=== PATIENT | female | born 1955 | race Caucasian/White ===

== ENCOUNTER → 2016-09-01 11:31 | Outpatient (CLI) | payer BC ==
[~2016-09-01] VITALS: Ht 170.2 cm; Wt 75.9 kg
--- NOTE | ~2016-09-01 | HEMODYNAMI ---
PATIENT:DAMIAN ALEJO MEDICAL RECORD: [id number] : 53 LOCATION:[facility] ADMISSION DATE: 09/01/16 Generatedon:09/01/201615:13 Patient name: DAMIAN ALEJO Patient #: [id number] SSN: : 1955 Date of study: 09/01/2016 Page: Of Hemodynamic Procedure Report Patient Data Patient Demographics Procedure consent was obtained First Name: DAMIAN Gender: Female Last Name: SAPNA : 1955 Patient #: [id number] Age: 60 year(s) Race: Unknown Additional ID: [id number] Contact details [address]: [address] [place] [address] State: [place] City: [place] Zip code: [address] Past Medical History Allergies Allergen Reaction Date Comments Reported Other allergy 09/01/2016 [facility] Admission Admission Data Admission Date: 09/01/2016 Admission Time: 11:31 Height (in.): 67 BSA: 1.87 (m2) Height (cm.): 170.18 BMI: 26.16 (kg/m2) Weight (lbs.): 167 Weight (kg.): 75.75 Lab Results Lab Result Date: 09/01/2016 Lab Result Time: 0:00 Biochemistry Name Units Result Min Max Creatinine mg/dl 0.9 --(-*--)-- 0.6 1.3 CBC Name Units Result Min Max Hemoglobin g/dl 12.8 -*(----)-- 13.5 17.5 Procedure Procedure Types Cath Procedure Diagnostic Procedure LHC LHC w/Coronaries Miscellaneous Procedures Moderate Sedation up to 15 minutes Procedure Description Procedure Date Procedure Date: 09/01/2016 Procedure Start Time: 14:55 Procedure End Time: 15:12 Procedure Staff Name Function Isra Brothers MD Performing Physician Kiel Cesar RT Scrub Mark Ac RN Nurse Ana Laura Thomason RT Monitor Procedure Data Cath Procedure Fluoroscopy Diagnostic fluoroscopy Total fluoroscopy Time: 2.2 time: 2.2 min min Diagnostic fluoroscopy Total fluoroscopy dose: dose: 229.3 mGy 229.3 mGy Contrast Material Contrast Material Type Amount (ml) Isovue 300 72 Entry Location Entry Primary Successful Side Size Upsize Upsize Entry Closure Kemp ccessful Closure Location (Fr) 1 (Fr) 2 (Fr) Remarks Device Remarks Radial Right 6 Fr Mechanical artery Short Compression Estimated blood loss: 5 ml Diagnostic catheters Device Type Used For End Catheter Placement Medtronic Dexterity 5Fr LV Angiography TRAP 4.0 catheter (NO CHARGE) Medtronic Dexterity 5Fr Left Coronary TRAP 4.0 catheter (NO Angiography CHARGE) Medtronic Dexterity 5Fr Right Coronary TRAP 4.0 catheter (NO Angiography CHARGE) Procedure Complications No complications Procedure Medications Medication Administration Route Dosage Oxygen NC 2 l/min Heparin Flush Bag added to field 2 bags (1000units/500ml NS) 0.9% NaCl I.V. 100 ml/hr Radial Cocktail added to field 1 syringe (Verapomil 2mg/Nitro 400mcg/Heparin 1500units) Fentanyl I.V. 50 mcg Versed I.V. 1 mg Fentanyl I.V. 50 mcg Versed I.V. 1 mg Radial Cocktail I.A. 1 syringe (Verapomil 2mg/Nitro 400mcg/Heparin 1500units) Hemodynamics Rest BSA: 1.87 (m2) HGB: 12.8 (g/dl) O2 Consumption: Estimated: 180.1 (ml/min) O2 Con sumption indexed: Estimated:96.31 (ml/min/m) Heart Rate: 75 (bpm) Pressure Samples Time Site Value (mmHg) Purpose Heart Use Rate(bpm) 14:58 LV 114/-3,-6 EDP 112 14:59 AO 105/52(74) Pullback 64 14:59 LV 111/6,18 Pullback 64 Gradients Valve Time Site 1 Site 2 Mean SEP/DFP Peak To Heart Use (mmHg) (sec/min) Peak Rate (mmHg) (bpm) Aortic 14:59 LV AO 19 8 6 64 111/6,18 105/52(74) Calculations Valve P-P Mean Valve Index Valve Source Name Gradient Area Flow (cm2) Aortic 6 19 6 19 Snapshots Pre Cath Intra NCS Post Cath Vital Signs Time Heart Resp SPO2 NIBP (mmHg) Rhythm Pain Sedation Rate (ipm) (%) Status Level (bpm) 14:35:33 75 17 96 142/78(116) NSR 0 (11) 10(A) , No pain 14:39:49 73 18 97 137/73(116) NSR 0 (11) 10(A) , No pain 14:44:08 77 18 95 123/76(98) NSR 0 (11) 10(A) , No pain 14:48:23 75 19 95 117/69(91) NSR 0 (11) 10(A) , No pain 14:52:37 73 18 95 121/70(94) NSR 0 (11) 10(A) , No pain 14:56:54 77 17 97 106/65(88) NSR 0 (11) 9(A) , No pain 15:01:07 77 16 96 109/63(82) NSR 0 (11) 9(A) , No pain 15:05:19 82 17 96 110/70(85) NSR 0 (11) 9(A) , No pain 15:09:33 80 16 94 115/67(90) NSR 0 (11) 9(A) , No pain Medications Time Medication Route Dose Verified Delivered Reason Notes Effectiveness by by 14:36:52 Oxygen NC 2 l/min Mark Flores Per Osorio Ac RN physician RN 14:37:01 Heparin Flush added 2 bags Mark Flores used for Bag to Osorio Ac rotoprinter (1000units/500ml field RN NS) 14:37:13 0.9% NaCl I.V. 100 Mark Flores Per ml/hr Osorio Ac RN physician RN 14:37:27 Radial Cocktail added 1 Mark Mark used for (Verapomil to syringe Osorio Ac rotoprinter 2mg/Nitro field RN 400mcg/Heparin 1500units) 14:53:32 Fentanyl I.V. 50 mcg Mark Mark for sedation Osorio Ac RN RN 14:53:38 Versed I.V. 1 mg Mark [place] for sedation Osorio Ac RN RN 14:55:04 Fentanyl I.V. 50 mcg Mark [place] for sedation Osorio Ac RN RN 14:55:07 Versed I.V. 1 mg [place] for sedation Osorio Ac RN RN 14:56:23 Radial Cocktail I.A. 1 Mark Isra for (Verapomil syringe Osorio Brothers MD vasodilation 2mg/Nitro RN 400mcg/Heparin 1500units) Procedure Log Time Note 14:13:39 Mark Ac RN sent for patient. Start room use. 14:23:17 Informed consent obtained and on chart 14:23:37 Diagnostic Cath status Elective 14:23:40 Time tracking: Regular hours 14:23:44 Plan of Care:Hemodynamics will remain stable., Cardiac rhythm will remain stable., Comfort level will be maintained., Respiratory function will remain adequate., Patient/ family verbilizes understanding of procedure., Procedure tolerated without complication., Recovers from procedure without complications.. 14:25:27 H&P Date Dictated: 08/17/2016 Within 30 days and on chart., H&P Addendum completed by physician on day of procedure. (MUST COMPLETE FOR ALL OUTPATIENTS). 14:25:43 Patient Height : 170.18 cm 14:25:48 Patient Weight : 75.75 kg 14:30:03 Patient received from Pre/Post Procedure Room to [facility] 3 Alert and oriented. Tansferred to table in Supine position. 14:30:04 Warm blankets applied, and juan manuel hugger turned on for patient comfort. 14:30:04 Correct patient and procedure confirmed by team. 14:30:05 ECG and BP/O2 sat monitors applied to patient. 14:34:28 Vital chart was started 14:36:52 Oxygen 2 l/min NC was administered by Mark Ac RN; Per physician; 14:37:01 Heparin Flush Bag (1000units/500ml NS) 2 bags added to field was administered by Mark Ac RN; used for procedure; 14:37:13 0.9% NaCl 100 ml/hr I.V. was administered by Mark Ac RN; Per physician; 14:37:27 Radial Cocktail (Verapomil 2mg/Nitro 400mcg/Heparin 1500units) 1 syringe added to field was administered by Mark Ac RN; used for procedure; 14:44:27 Baseline sample Acquired. 14:46:20 Full Disclosure recording started 14:46:25 Rhythm: sinus rhythm 14:46:27 Pre-procedure instructions explained to patient. 14:46:28 Pre-op teaching completed and patient verbalized understanding. 14:46:29 Family in waiting room. 14:46:31 Patient NPO since Midnight. 14:46:48 Patient allergic to Other allergyStadol 14:46:55 Is the patient allergic to Iodine/contrast media? No. 14:47:02 Is patient on blood thinner?Yes 14:47:08 ACC The patient was administered the following blood thiners within the last 24 hours: ACCPlavix 14:47:10 Patient diabetic? Yes. 14:47:12 If diabetic: On Metformin? No 14:47:14 Previous problem with sedation/anesthesia? No ? 14:47:16 Snore? Yes 14:47:18 Sleep apnea? Yes 14:47:20 Deviated septum? No 14:47:24 Opens mouth fully? Yes 14:47:24 Sticks out tongue? Yes 14:47:28 Airway obstruction? No ? 14:47:30 Dentures? No ? 14:47:34 Pre procedure: right dorsailis pedis pulse 2+ Normal; easily identifiable; not easily obliterated 14:47:36 Modified Ottoniel's test Ulnar < 7 seconds 14:47:38 Patient pain scale 0/10 ?. 14:47:45 IV patent on arrival in left hand with 0.9% NaCl at [facility]. 14:48:09 Lab Result : Creatinine 0.9 mg/dl 14:48:10 Lab Result : Hemoglobin 12.8 g/dl 14:48:13 Lab results completed and on chart. 14:48:16 Right Radial & Right Groin area was prepped with chlora-prep and draped in sterile fashion 14:48:17 Alarms reviewed by R. N. 14:48:17 Sharps counted by scrub and verified by R.N. 14:48:19 Use device set Radial Dx 14:48:20 Acist Syringe opened to sterile field. 14:48:20 Medline Cath Pack opened to sterile field. 14:48:21 Bag Decanter opened to sterile field. 14:48:21 Terumo 6Fr Slender Glidesheath opened to sterile field. 14:48:22 St Karl 260cm J .035 wire opened to sterile field. 14:48:22 Acist Hand Control opened to sterile field. 14:48:22 Acist Manifold opened to sterile field. 14:48:23 Tegaderm 4 x 4 opened to sterile field. 14:48:24 MBrace Wrist Support opened to sterile field. 14:48:34 Cook 21G 4cm Radial Needle opened to sterile field. 14:48:59 Final Timeout: patient, procedure, and site verified with staff and physician. All members of the team are in agreement. 14:49:03 Right Radial site verified by team. 14:49:05 Physical assessment completed. ASA score P 2 - A patient with mild systemic disease as per Isra Brothers MD. 14:49:07 Sedation plan: IV Moderate Sedation Versed, Fentanyl 14:53:32 Fentanyl 50 mcg I.V. was administered by Mark Ac RN; for sedation; 14:53:38 Versed 1 mg I.V. was administered by Mark Ac RN; for sedation; 14:55:04 Fentanyl 50 mcg I.V. was administered by Mark Ac RN; for sedation; 14:55:07 Versed 1 mg I.V. was administered by Mark Ac RN; for sedation; 14:55:22 Procedure started. 14:55:27 Local anesthetic to right radial artery with Lidocaine 2% by Isra Brothers MD.INITIAL ACCESS ONLY 14:55:49 Zero performed for pressure channel P1 14:56:18 A 6 Fr Short sheath was inserted into the Right Radial artery 14:56:23 Radial Cocktail (Verapomil 2mg/Nitro 400mcg/Heparin 1500units) 1 syringe I.A. was administered by Isra Brothers MD; for vasodilation; 14:57:46 A Medtronic Dexterity 5Fr TRAP 4.0 catheter (NO CHARGE) was advanced over the wire and used for LV Angiography. 14:58:59 LV gram done using MENEZES 14:59:00 LV hemodynamics recorded. 14:59:02 Injector settings: Ml/sec: 5, Volume: 15, 14:59:18 EF : 50 % 15:01:26 A Medtronic Dexterity 5Fr TRAP 4.0 catheter (NO CHARGE) was advanced over the wire and used for Left Coronary Angiography. 15:02:46 A Medtronic Dexterity 5Fr TRAP 4.0 catheter (NO CHARGE) was advanced over the wire and used for Right Coronary Angiography. 15:07:02 Catheter removed. 15:07:12 Sheath removed intact; hemostasis achieved with Mechanical Compression to the Right Radial artery. 15:07:14 Procedure ended.(Physican Out) 15:07:26 Fluoroscopy time 02.20 minutes. 15:07:32 Flurop Dose total: 229.3 15:07:32 Fluoroscopy dose: 229.3 mGy 15:07:43 Contrast amount:Isovue 300 72ml. 15:07:45 Sharps counted by scrub and verified by R.N. 15:07:47 TR band inflated with 12cc of air. 15:07:48 Insertion/operative site no bleeding no hematoma. 15:07:56 Post right radial artery:stable, clean and dry 15:07:57 Post Procedure Pulses reassessed and unchanged 15:08:05 Post-procedure physical assessment completed. ASA score P 2 - A patient with mild systemic disease as per Isra Brothers MD. 15:08:10 Post procedure rhythm: sinus rhythm 15:08:15 Estimated blood loss: 5 ml 15:08:16 Post procedure instruction explained to patient.Patient verbalizes understanding. 15:08:17 Patient needs reinforcement of post procedure teaching. 15:08:31 Procedure type changed to Cath procedure, Diagnostic procedure, LHC, LHC w/Coronaries, Miscellaneous Procedures, Moderate Sedation up to 15 minutes 15:08:36 Procedure Complication : No complications 15:08:38 See physician's report for complete and final results. 15:09:01 Terumo TR Band Standard opened to sterile field. 15:09:32 Procedure and supply charges have been captured, reviewed, submitted and are correct. 15:12:25 Vital chart was stopped 15:12:28 Report given to Pre/Post Procedure Room. 15:12:30 Patient transfered to Pre/Post Procedure Room with Stretcher. 15:12:37 Procedure ended. 15:12:37 Full Disclosure recording stopped 15:12:49 End room use (Document Last) Device Usage Item Name Manufacture Quantity Catalog Hospital Part Current Minimal Lot# / Number Charge Number Stock Stock Serial# Code Acist Acist 1 72780 629754 477181 [id number] 20 Syringe Medical Systems Inc Medline Cardinal 1 [id number] 066698 04228 488784 5 Cath Pack Health Bag Microtek 1 2001S 739734 23154 351380 5 DecVello Systems [employer] Inc. Terumo 6Fr Terumo 1 [id number] 795752 108744 538095 [address] St Karl 1 033611 554625 722053 925762 30 260cm J .035 wire Acist Hand Acist 1 63310 770204 010832 001018 5 Control Medical Systems Inc Acist Acist 1 29017 200358 174173 531020 5 Manifold Medical Systems Inc Tegaderm 4 3M 1 1626W 935817 850805 356875 5 x 4 MBrace Advanced 1 140-0250-00 700544 16840 591078 5 Wrist Vascular Support Dynamics Cook 21G Cook Medical 1 [id number] 464890 404956 589786 5 4cm Radial Needle Medtronic Medtronic 1 [id number] 262550 482287 5 Dexterity 5Fr TRAP 4.0 catheter (NO CHARGE) Terumo TR Terumo 1 [id number] 258290 083841 918828 40 Band Standard Signature Audit Alexander Stage Time Signature Unsigned Intra-Procedure 09/01/2016 Ana Laura 3:13:07 PM Counts RT(R) Signatures Monitor : Ana Laura Signature : Counts RT Date : Time : [place] [id number] [place] [address]
[~2016-09-01 11:31] MED LIST: ASPIRIN81 MG PO; BACLOFEN10 MG PO; CELEXA40 MG PO; DIOVAN HCT 160/1 TA1 PO; ELAVIL75 MG PO; FERROUS SULFAT325 MG PO; FISH OIL 1,0001 CA1 PO; FLEXERIL10 MG PO; FLINTSTONE1 TAB.CHEW PO; FOLATE0.4 MG PO; GLUCOPHAGE1000 MG PO; GLUCOTROL XL 1010 MG PO; ISOSORBIDE MONO60 M1 PO; JANUVIA100 MG PO; LACTULOSE SOL 10G; LANOXIN125 MCG PO; LEVEMIR INJ FLE; LISINOPRIL5 MG GT; LOPRESSOR25 MG PO; MAGNESIUM GLUC500 M1 PO; MELATONIN 3 MG1 TAB PO; MOBIC7.5 MG PO; NIASPAN500 MG PO; NORCO 10/325 TA1 TA1 PO; PLAVIX75 MG PO; PRAVACHOL20 MG PO; REMERON15 MG PO; REQUIP0.5 MG PO; RESTORIL15 MG PO; VITAMIN D31000 UNIT PO; WELCHOL625 MG; ZIAC 10/6.25 MG1 TAB PO
[2016-09-01 12:05] VITALS: BP 124/79; Ht 170.2 cm; Wt 75.9 kg
[2016-09-01 12:07] LABS: BASOPHILS 0.4 % (0-2); EOSINOPHILS 2.2 % (0-7); HEMOGLOBIN 12.8 g/dL (12-16); IMMATURE GRANULOCYTES 0.3 % (0-5); LYMPHOCYTES 23.1 % (15-50); MCH 27.7 pg (26.0-34.0); MCHC 33.7 g/dL (31.0-37.0); MCV 82.3 fL (80.0-100.0); MEAN PLATELET VOLUME 10.8 fL (7.4-10.4); MONOCYTES 6.5 % (2-11); NEUTROPHILS 67.5 % (40-80); RBC 4.62 10x6/uL (4.00-5.40); RDW 13.4 % (11.5-14.5); WBC 7.8 10x3/uL (4.8-10.8)
[2016-09-01 12:08] LABS: PLATELET COUNT 157 10x3/uL (130-400)
[2016-09-01 12:32] LABS: CALCIUM 9.3 mg/dL (8.5-10.1); CARBON DIOXIDE 25.4 mmol/L (21.0-32.0); CREATININE - SERUM 0.9 mg/dL (0.6-1.3); POTASSIUM - SERUM 4.4 mmol/L (3.5-5.1)
--- NOTE | 2016-09-01 15:31 | NUR ---
VSS WITH CHEST PAIN DENIED TR BAND TO R/WRIST CDI NO BLEEDING NO HEMATOMA NOTED. FAMILY AT SIDE WITH DR RUIZ PRESENT
--- NOTE | 2016-09-01 16:12 | NUR ---
PATIENT SLEEPING QUIELTY WITH VSS NO DISTRESS NOTED TR BAND R/WRIST CDI NO BLEEDING NO HEMATOMA NOTED
--- NOTE | 2016-09-01 16:52 | NUR ---
2 CC AIR REMOVED FROM TR BAND WITH NO BLEEDING NOTED REPOSITIONED TO SITTING WITH HOB UP 45 DEGREES SANDWICH AND SODA TO BEDSIDE
--- NOTE | 2016-09-01 17:53 | NUR ---
2 CC AIR REMOVED FROM TR BAND WITH NO BLEEDING NO HEMATOMA NOTED. PIV REMOVED WITH DRESSING APPLIED PATIENT UP TO GET DRESSED FOR DISCHARGE HOME
--- NOTE | 2016-09-01 18:24 | NUR ---
VERBAL AND WRITTEN DISCHARGE GONE OVER WITH PATIENT AND FAMILY. TR BAND REMOVED WITH NO BLEEDING NO HEMATOMA NOTED. LEFT VIA WC TO PARKING FOR TRANSPORT HOME
--- NOTE | 2016-09-02 10:59 | OP ---
PATIENT NAME: DAMIAN ALEJO MEDICAL RECORD: [id number] :53 LOCATION:D.CAT ADMISSION DATE: SURGEON: CLIVE RUIZ M.D. DATE OF OPERATION: 09/01/2016 Catheterization Report REFERRING PHYSICIAN: Dr. London Bautista at [place], [place]. PROCEDURES PERFORMED: 1. Selective coronary angiography. 2. Left heart catheterization with ventriculogram. INDICATION: A 60-year-old woman with history of coronary artery disease presents with accelerating angina. EQUIPMENT USED: A 5-Belgian [place] catheter. TECHNIQUE: A 6-Belgian sheath was inserted in retrograde fashion in the right radial artery. Next, selective coronary angiography was performed in standard 5-Belgian [place] catheter. Left heart catheterization was performed using [place] catheter as well. CORONARY ANATOMY: 1. Left main: Left main trunk is large in caliber. It gives rise to the LAD and circumflex. There is no obstruction. 2. LAD: This is a moderate caliber vessel extending to the apex. The proximal vessel has been stented. Distal to the stent, there appears to be a hazy 70% stenosis. In some views, it could be as much as 80%. There is a stent in the mid LAD as well. There is a long diffuse 70% in-stent restenosis seen as well. 3. Circumflex: This vessel is moderate in caliber. It has mild irregularities throughout its course. 4. Right coronary artery: This vessel is quite large and dominant. The proximal mid vessel has been stented. The vessel is quite angulated in the proximal mid segment. There appears to be a diffuse 70% stenosis throughout the stent. The distal vessel before the bifurcation has a 78% stenosis as well. As stated above, this vessel is extremely angulated in the proximal and mid segments. 5. Left ventricle: Left ventricle is normal in size and function. No wall motion abnormalities are noted. Estimated ejection fraction is 50%. IMPRESSION: 1. Significant 2-vessel coronary artery disease involving the LAD and right coronary artery. 2. Normal left ventricular function. RECOMMENDATIONS: I will review the situation with the patient. I am quite concerned about intervening on the right coronary artery. The vessel is quite angulated. It may not be possible to deliver stents to the distal segment. We may need to consider bypass grafting. I will review the situation with the patient. TRANSINT:[id number] Voice Confirmation ID: [id number] DOCUMENT ID: [id number] OPERATIVE REPORT [id number] DAMIAN ALEJO TIMOTHY E M.D. at 1059 CC: [id number] DICTATION DATE: 09/01/16 1518 DUTY ENGINEER: 09/01/16 2321 DEP CLI 09/01/16 [place] [id number] [place] [id number]
== END | disposition home or self-care (01) ==
LOC: D.CATH 11:31
PROVIDERS: Internal Medicine Cardiovascular Disease
DX: I25.110 Atherosclerotic heart disease of native coronary artery with unstable angina pectoris (principal); T82.855A Stenosis of coronary artery stent, initial encounter

== ENCOUNTER → 2016-09-23 15:05 | Outpatient (CLI) | payer BC ==
[2016-09-01 12:05] VITALS: BMI 26.2
[2016-09-23 15:51] LABS: BASOPHILS 0.3 % (0-2); EOSINOPHILS 2.4 % (0-7); HEMATOCRIT 37.5 % (36.0-48.0); HEMOGLOBIN 12.5 g/dL (12-16); IMMATURE GRANULOCYTES 0.3 % (0-5); LYMPHOCYTES 29.7 % (15-50); MCH 27.8 pg (26.0-34.0); MCHC 33.3 g/dL (31.0-37.0); MCV 83.5 fL (80.0-100.0); MEAN PLATELET VOLUME 10.2 fL (7.4-10.4); MONOCYTES 7.2 % (2-11); NEUTROPHILS 60.1 % (40-80); PLATELET COUNT 137 10x3/uL (130-400); RBC 4.49 10x6/uL (4.00-5.40); RDW 13.8 % (11.5-14.5); WBC 7.1 10x3/uL (4.8-10.8)
[2016-09-23 16:22] LABS: ALBUMIN 3.9 g/dL (3.4-5.0); ANION GAP 11.8 mmol/L (8-16); BILIRUBIN - TOTAL 0.53 mg/dL (0.2-1.3); CALCIUM 9.4 mg/dL (8.5-10.1); CARBON DIOXIDE 29.4 mmol/L (21.0-32.0); CREATININE - SERUM 1.2 mg/dL (0.6-1.3); POTASSIUM - SERUM 4.2 mmol/L (3.5-5.1); PROTEIN - SERUM 6.8 g/dL (6.4-8.2)
[2016-09-24 10:22] LABS: HEPATITIS C ANTIBODY <0.1 (0.0-0.9)
== END | disposition home or self-care (01) ==
LOC: D.LAB 15:05 → D.US 17:00
PROVIDERS: Internal Medicine Cardiovascular Disease
DX: G90.01 Carotid sinus syncope (principal); Z01.812 Encounter for preprocedural laboratory examination

== ENCOUNTER 2016-11-12 05:00 | Inpatient (IN) | payer BC ==
[2016-11-11 13:53] LABS: BASOPHILS 0.1 % (0-2); EOSINOPHILS 2.1 % (0-7); HEMATOCRIT 36.1 % (36.0-48.0); HEMOGLOBIN 12.2 g/dL (12-16); IMMATURE GRANULOCYTES 0.1 % (0-5); LYMPHOCYTES 20.2 % (15-50); MCH 28.8 pg (26.0-34.0); MCHC 33.8 g/dL (31.0-37.0); MCV 85.1 fL (80.0-100.0); MONOCYTES 6.1 % (2-11); NEUTROPHILS 71.4 % (40-80); RBC 4.24 10x6/uL (4.00-5.40); RDW 13.6 % (11.5-14.5); WBC 8.5 10x3/uL (4.8-10.8)
[2016-11-11 14:00] LABS: PLATELET COUNT 167 10x3/uL (130-400)
[2016-11-11 14:04] LABS: APTT 27.7 SECONDS (22.8-39.4); INR 1.08 (0.85-1.17); PROTIME 13.8 SECONDS (11.6-15.0)
[2016-11-11 14:07] LABS: APPEARANCE CLEAR (CLEAR); BILIRUBIN NEGATIVE (NEGATIVE); COLOR YELLOW (YELLOW); GLUCOSE NEGATIVE (NEGATIVE); KETONE NEGATIVE (NEGATIVE); NITRITE NEGATIVE (NEGATIVE); PROTEIN NEGATIVE (NEGATIVE); SPECIFIC GRAVITY 1.015 (1.005-1.020); UROBILINOGEN NORMAL (NORMAL)
[2016-11-11 14:11] LABS: BACTERIA FEW /hpf (NONE SEEN); EPITHELIAL CELLS 0-5 /hpf (0-5); HYALINE CAST RARE /lpf (NONE SEEN); LEUKOCYTE ESTERASE TRACE (NEGATIVE); RED CELLS - URINE NONE SEEN /hpf (0-5); WHITE CELLS - URINE 0-5 /hpf (0-5)
[2016-11-11 14:13] LABS: ALBUMIN 3.8 g/dL (3.4-5.0); ANION GAP 13.5 mmol/L (8-16); BILIRUBIN - TOTAL 0.47 mg/dL (0.2-1.3); CALCIUM 9.2 mg/dL (8.5-10.1); CARBON DIOXIDE 26.7 mmol/L (21.0-32.0); PHOSPHOROUS 4.1 mg/dL (2.5-4.9); POTASSIUM - SERUM 4.2 mmol/L (3.5-5.1); PROTEIN - SERUM 7.2 g/dL (6.4-8.2); T4 THYROXIN - FREE 1.33 ng/dL (0.76-1.46); THYROID STIMULATING HORMONE 1.32 uIU/mL (0.36-3.74); URIC ACID 5.1 mg/dL (2.6-7.2)
[2016-11-11 14:16] LABS: HEMOGLOBIN A1C 4.9 % (4.8-6.0)
[2016-11-11 15:51] LABS: COLD SCREEN @ 4 DEGREES 1+ (NEGATIVE); COLD SCREEN ROOM TEMP NEGATIVE (NEGATIVE)
--- NOTE | 2016-11-11 19:50 | NUR ---
EXTUBATED TO 3 LPM NC NO DIFF. PASSPORT APPLICATION EXAMINER MORPHINE INITIATED FOR PAIN CONTROL. SPO2 99%. RR 18. NO DISTRESS. CONT CURRENT POC.
[~2016-11-12] VITALS: Ht 170.2 cm; Wt 78.8 kg
[2016-11-12] VITALS (40 sets, daily range): BP systolic 11–140; BP diastolic 50–66; BMI 26.0; BMI 26.2
--- NOTE | ~2016-11-12 | TEE ---
PATIENT:DAMIAN ALEJO MEDICAL RECORD: [id number] LOCATION:[place] [address] AGE OF PATIENT: 60 ADMISSION DATE: 11/12/16 SEX: F REFERRING PHYSICIAN: INTERPRETING PHYSICIAN: JACQUELINE VEGA MD TRANSESOPHAGEAL ECHOCARDIOGRAM COLLIN CHARGE INDICATIONS: PREMEDICATIONS: PATIENT'S RESPONSE PROCEDURE DOPPLER MEASUREMENTS: LVIT LA PA RA LVOT RVOT Asc. Ao AV Gradient Peak AV Mean AV Area MV Gradient Peak MV Mean MV Area INTERPRETATION: Doppler: 2-D: COLOR FLOW DOPPLER NORMAL SALINE STUDY: MISCELLANOUS: DIAGNOSIS: PLAN: Epic Professional:2 Dr. Brothers Machine Presser: Gabriella ANDREW COMMENTS: TRANSESOPHAGEAL ECHOCARDIOGRAM INDICATION: Evaluation of valvular structures during bypass surgery. 1. Left ventricular chamber size is within normal limits. Left ventricular systolic function is normal. Overall ejection fraction is estimated at 55 percent. 2. Left atrium, right atrium, and right ventricular chamber sizes are within normal limits. TRANSESOPHAGEAL ECHOCARDIOGRAM REPORT [id number] DAMIAN ALEJO 3. Valvular structures have normal structure and motion. 4. Doppler interrogation only reveals trace mitral regurgitation; no other valvular insufficiency or stenosis. 5. No evidence of pericardial effusion or left ventricular thrombus. JACQUELINE VEGA MD CC: [id number] DICTATION DATE: 11/12/162128 BOX FINISHER: JDEVENDRA 11/12/162127 [place] [address] [place] [address]
[~2016-11-12 05:00] MED LIST changes: +ENULOSE10 G/15 ML PO; -LACTULOSE SOL 10G; -LEVEMIR INJ FLE; +LEVEMIR100 U/M1 SC; -LOPRESSOR25 MG PO; +MAG-OX 400 MG400 MG PO; +METOPROLOL TART50 MG PO; +MULTIPLE VITAMI1 TA1 PO; +NITROQUICK0.4 MG SL; +NOVOLOG100 U/M1 SC; +VITAMIN B COMPL1 TAB PO; +VITAMIN E400 UNI2 PO
[2016-11-12 07:52] LABS: PLT FUNCT.(P2Y12) PLAVIX 329 PRU (194-418)
[2016-11-12 13:39] LABS: MCH 28.4 pg (26.0-34.0); MCHC 33.8 g/dL (31.0-37.0); MCV 84.2 fL (80.0-100.0); MEAN PLATELET VOLUME 9.7 fL (7.4-10.4); RDW 13.5 % (11.5-14.5); WBC 6.8 10x3/uL (4.8-10.8)
[2016-11-12 13:43] LABS: CHLORIDE - SERUM 113 mmol/L (98-107); POTASSIUM - SERUM 4.1 mmol/L (3.5-5.1); SODIUM 147 mmol/L (136-145)
[2016-11-12 13:49] LABS: CALC OSMOLALITY 298 mosm/kg (275-300); CREATININE - SERUM 0.7 mg/dL (0.6-1.3); GLUCOSE 191 mg/dL (74-106); UREA NITROGEN 17 mg/dL (7-18); eGFR NON AFRICAN AMERICAN 90 mL/min (90-120)
[2016-11-12 13:53] LABS: APTT 36.6 SECONDS (22.8-39.4); HEMOGLOBIN 8.1 g/dL (12-16); INR 1.55 (0.85-1.17); PROTIME 18.6 SECONDS (11.6-15.0); RBC 2.85 10x6/uL (4.00-5.40)
--- NOTE | 2016-11-12 18:46 | NUR ---
1415-RECIEVED ACCOMPANIED BY OR TEAM-PLACED TO MONITORING SYSTEMS AND VENT PER PROTOCOL-PACED 100% AV-DDD--OGT CONFIRMED WITH AIR BOLUS FOR PLACEMENT-SOFT WRIST RESTRAINTS PLACED FOR PROTECTION OF AIRWAY-PORTABLE CXR CALLED-INSULIN GTT STARTED PER ORDERS- MEDIASTINAL CHEST TUBES PLACED TO 20CM SUCTION-NOTED SCANT SANG DRAINAGE AND NO AIRLEAK- 1500-PT ABLE TO OPEN EYES TO QUESTIONS-FRIEND BROUGHT TO BEDSIDE-AND STATUS REPORT GIVEN BY DR VELÁZQUEZ-TELEPHONE NUMBER OBTAINED FOR EMERGENCY CONTACT 1530-AMMONIA LEVEL DRAWN 1750-PT AWAKE AND ALERT-REPOSITIONED TO L SIDE 1810-AMMONIA LEVEL CALLED TO DR VELÁZQUEZ-ORDER RECIEV'D AND NOTED 1830-PT ABLE TO OPEN EYES AND NOD APPROPRIATELY TO QUESTION-WEANING CONTINUED BY RT
--- NOTE | 2016-11-12 19:15 | NUR ---
REPORT RECVD. CARE ASSUMED. INITIAL ASSMNT COMPLETED. SEE FLOWSHEET FOR ALL FINDINGS. CALM/COOPERATIVE ON MECH VENT. NO SEDATION. CPAP TRIAL IN PLACE. SPO2 96%. RESP EVEN AND UNLABORED. LUNG SOUNDS DIM IN BASES. AV PACED ON THE MONITOR. TEMP PM INTACT AT DDD 100. PULSES PALP. RIGHT RADIAL A-LINE ZEROED AND BALANCED WITH GOOD WAVE FORM SEEN. SYS B/P WITHIN PARAMETERS. RIGHT IJ SWAN LOCKED, PATENT, AND SECURED. CARDIAC MONITORING PER VIGILENCE WITHIN PARAMETERS. STERNAL DRESSINGS CDI. CHEST TUBES X3 PATENT AND SECURED TO 20 SM SX. NO AIR LEAK NOTED. MINIMAL BLOODY DRNG SEEN. ABD SOFT, BS HYPO X4. F/C PATENT WITH PHI UOP. TEDS.SCDS IN USE. 1:[address] CONT CURRENT POC.
--- NOTE | 2016-11-12 19:41 | NUR ---
ABGS DRAWN AND RESULTED. K+ LEVEL TREATED. ALL OTHER LEVEL WITHIN PARAMETERS.
--- NOTE | 2016-11-12 21:10 | NUR ---
NO VISITORS. TURNED AND REPOSITIONED. VSS. PROCESS SAFETY MANAGER MORPHINE PROVIDING PAIN CONTROL. HOB UP. 1:[address] CONT CURRENT POC.
--- NOTE | 2016-11-12 23:05 | NUR ---
ABGS DRAWN AND RESULTED. ALL WITHIN PARAMETERS. DECREASED FIO2 TO 2 LPM NC.
--- NOTE | 2016-11-12 23:15 | NUR ---
REASSESSMENT COMPLETED. SEE FLOWSHEET FOR ALL FINDINGS. RESTING WITH NO DISTRESS. RESP EVEN AND UNLABORED. SHALLOW. SPO2 96%. LUNG SOUNDS DIM IN BASES. V PACED/ ATRIAL SENSING. TEMP PM INTACT AT DDD 100. PULSES PALP. RIGHT RADIAL A-LINE INTACT WITH GOOD WAVE FORM SEEN. SYS B/P WITHIN PARAMETERS. RIGHT IJ SWAN LOCKED, PATENT, AND SECURED. CARDIAC MONITORING PER VIGILENCE WITHIN PARAMETERS. STERNAL DRESSINGS CDI. CHEST TUBES X3 PATENT AND SECURED TO 20 SM SX. NO AIR LEAK NOTED. MINIMAL BLOODY DRNG SEEN. ABD SOFT, BS HYPO X4. F/C PATENT WITH PHI UOP TO CRITICORE. APAP GIVEN PO FOR ELEVATED TEMP. ASSEMBLER EQUIPMENT MORPHINE PROVIDING EFFECTIVE PAIN CONTROL. TEDS/SCDS IN USE. 1:[address] CONT CURRENT POC.
[2016-11-13] VITALS (91 sets, daily range): BP systolic 92–134; BP diastolic 22–61
--- NOTE | 2016-11-13 01:20 | NUR ---
TURNED AND REPOSITIONED. RESTING WITH NO DISTRESS. COOLING EFFORTS FOR ELEVATED TEMP. SOAP DRIER TENDER MORPHINE IN USE FOR PAIN CONTROL. HOB UP. REMAINS IN 1:1 NURSING CARE.
--- NOTE | 2016-11-13 03:09 | NUR ---
ABGS DRAWN AND RESULTED. K+ LEVEL TREATED PER SLIDING SCALE. TEMP TREATED WITH APAP. COOLING EFFORTS IN PLACE.
--- NOTE | 2016-11-13 03:15 | NUR ---
REASSESSMENT COMPLETED. SEE FLOWSHEET FOR ALL FINDINGS. RESTING WITH NO DISTRESS. RESP EVEN AND UNLABORED. SHALLOW. SPO2 96%. LUNG SOUNDS DIM IN BASES. V PACED/ ATRIAL SENSING. TEMP PM INTACT AT DDD 100. PULSES PALP. RIGHT RADIAL A-LINE INTACT WITH GOOD WAVE FORM SEEN. SYS B/P WITHIN PARAMETERS. RIGHT IJ SWAN LOCKED, PATENT, AND SECURED. CARDIAC MONITORING PER VIGILENCE WITHIN PARAMETERS. STERNAL DRESSINGS CDI. CHEST TUBES X3 PATENT AND SECURED TO 20 S SX. NO AIR LEAK NOTED. MINIMAL BLOODY DRNG SEEN. ABD SOFT, BS HYPO X4. F/C PATENT WITH PHI UOP TO CRITICORE. APAP AND COOLING EFFORTS IN PLACE. FBI INVESTIGATOR MORPHINE PROVIDING EFFECTIVE PAIN CONTROL. TEDS/SCDS IN USE. 1:[address] CONT CURRENT POC.
--- NOTE | 2016-11-13 05:28 | NUR ---
RESTING WITH NO DISTRESS. RIGHT LEG DRESSING CHANGED PER ORDERS. VSS. TEMP WITHIN PARAMETERS. NO DISTRESS. TURNED AND REPOSITIONED. HOB UP. CONT 1:1 NURSING CARE.
[2016-11-13 06:10] LABS: HEMATOCRIT 21.3 % (36.0-48.0); MCHC 32.9 g/dL (31.0-37.0); MCV 85.2 fL (80.0-100.0); MEAN PLATELET VOLUME 9.6 fL (7.4-10.4); RBC 2.5 10x6/uL (4.00-5.40); RDW 13.9 % (11.5-14.5); WBC 8.2 10x3/uL (4.8-10.8)
[2016-11-13 06:25] LABS: ALBUMIN 3.4 g/dL (3.4-5.0); BILIRUBIN - TOTAL 0.67 mg/dL (0.2-1.3); CARBON DIOXIDE 28.1 mmol/L (21.0-32.0); POTASSIUM - SERUM 4.1 mmol/L (3.5-5.1)
[2016-11-13 06:32] LABS: PROTEIN - SERUM 5.3 g/dL (6.4-8.2)
--- NOTE | 2016-11-13 09:13 | NUR ---
0715-RECIVED PER FLOW SHEET-AWAKE AND ALERT-PRBC UNIT STARTED PER PARAMETER NOTED MEDIASTINAL AND THORACIC CHEST TUBE IN PLACE-NOTED SEROUS/SANG DRAINAGE-NO AIR LEAK AT THIS TIME-PACER DDD WITH SENSING ATRIUM VENT PACED-SINUS BASED
--- NOTE | 2016-11-13 12:04 | NUR ---
DR VELÁZQUEZ AT BEDSIDE-DOP AT 1.5 MCG-TURNED OFF DIRECTED-PACER CHANGED TO VVI 60/10-SR AT 100-KBRN
--- NOTE | 2016-11-13 13:26 | HP ---
PATIENT: DAMIAN ALEJO ANN MEDICAL RECORD: [id number] ACCOUNT: [id number] LOCATION:[facility].CV04 : 54 ADMISSION DATE: 11/12/16 HISTORY AND PHYSICAL EXAMINATION DAMIAN Abdi (60yo, F) ID# [id number]. Date/Time11/11/2016 10:11FCKIE51 1955Service Dept.NPP_[facility] ClinicProviderEDBRIE VELÁZQUEZ MDInsuranceMed Primary: [employer] - HEALTH ADVANTAGE (PPO) Insurance # : [id number] Policy/Group # : [id number] Referring Provider Name : LUZ RITTER MD Employer Name : UNEMPLOYED Prescription: CMX - Member is eligible. Chief Complaint Followup: Coronary arteriosclerosis CAD, SCHED FOR CABG ON 11/12, NEEDS CLARIFICATION AND EXPLANATION OF PROCEDURE. Patient's Care Team Referring Provider (): LUZ RITTER MD: [address] [place] [address], , Stock Drier Tender: CLIVE RUIZ MD: [address] [place] [phone], , Patient's Pharmacies [facility] ([facility]): [facility] [address] [place] [address], , Vitals BP:116/56 sitting R arm 11/11/2016 10:32 amBP Cuff Size:adult 11/11/2016 10:32 amHR:76,REG 11/11/2016 10:33 amHt:5 ft 7 in 11/11/2016 10:27 amWt:168 lbs 11/11/2016 10:33 amNotes:WENT TO ER TWO WEEKS AGO W 140 HR, PER PT NO HEART ATTACK SYMPTOMS. NEEDS TO CLARIFY OPERATIVE PROCEDURE. 11/11/2016 10:33 amBMI:26.3 11/11/2016 10:33 amAllergies Reviewed Allergies STADOLMedications Reviewed Medications Aspir-81 1 tablet daily09/23/16 enteredCindy Brownbaclofen 10 mg /06/17 filledCaremarkcitalopram 40 mg ggpamj65/30/17 filledCaremarkclopidogrel 75 mg /12/17 filledCaremarkdigoxin 125 mcg /24/17 filledCaremarkisosorbide mononitrate ER 60 mg tablet,extended release 24 hr10/13/16 filledCaremarkJanuvia 100 mg qlqgeb61/30/17 filledCaremarkJanuvia 50 mg qjcmgy01/08/16 filledCaremarklactulose 10 gram/15 mL oral zzsvyeqn63/29/17 filledCaremarkLevemir FlexTouch 100 unit/mL (3 mL) subcutaneous insulin pen10/11/16 filledCaremarkmetoprolol succinate ER 100 mg tablet,extended release 24 hr10/29/16 filledCaremarknitroglycerin 0.4 mg sublingual eziwbg66/18/17 filledCaremarkNovoLOG Flexpen 100 unit/mL rxyywzdzlzdx26/31/16 filledCaremarkpravastatin 20 mg dycswv59/01/17 filledCaremarkrOPINIRole 0.5 mg cfeavc03/14/17 filledCaremarktemazepam 15 mg /30/17 filledCaremarkUlticare Pen Needle 32 gauge x 5/32"11/08/16 filledCaremarkvalsartan 160 mg-hydrochlorothiazide 25 mg agzolo24/26/17 filledCaremarkWelChol 625 mg /12/17 filledCaremarkProblems Reviewed Problems Renal failure syndrome - Onset: 09/23/2016 Hepatic encephalopathy - Onset: 09/23/2016 Coronary arteriosclerosis - Onset: 09/23/2016 HISTORY AND PHYSICAL [id number] DAMIAN ALEJO Family History Discussed Family History Father- Heart diseaseMother- Heart diseaseSocial History Discussed Social History Cardiology Family history of heart disease?: Y Smoking Status: Never smoker High Cholesterol: Y High blood pressure: Y Exercise level: Moderate Overweight: Y Obese: N Diabetes: Y Alcohol intake: None Surgical History Reviewed Surgical History Removal of gallbladder - COMPLICATED BY HE[facility] KIDNEY Other - 11/16/2012 - PTCA/stent CHRONIC SPECIALIST History (not configured) Past Medical History Discussed Past Medical History Anemia: Y Bladder Problems: Y Chest Pain: Y Circulation Problems: Y Coronary Artery Disease: Y Depression: Y Diabetes: Y Heart Disease: Y - HEART ATTACK 2012 Heart stents: Y High Blood Pressure: Y Hyperlipidemia: Y Kidney Disease: Y Liver Disease: Y Shortness of Breath: Y Thyroid Problems: Y Documents for Discussion N/A Screening None recorded. 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 She reports shortness of breath but reports no cough, no wheezing, and no coughing up blood. She reports no abdominal pain, no vomiting, normal appetite, no diarrhea, not vomiting blood, no nausea, and no constipation; history of hepatic encephalopathy. She reports no incontinence, no difficulty urinating, no hematuria, and no increased frequency; chronic renal insufficiency. She reports no fever, no night sweats, no signif icant weight gain, and no significant weight loss. She reports no dry eyes, no irritation, and no HISTORY AND PHYSICAL [id number] [place],ALONSO vision change. She reports no difficulty hearing and no ear pain. She reports no frequent nosebleeds and no nose/sinus problems. She reports no sore throat, n o bleeding gums, no snoring, no dry mouth, no mouth ulcers, no oral abnormalities, and no teeth problems. She reports no jugular vein distension and no swollen glands. She reports no muscle aches, no muscle weakness, no arthralgias/joint pain, no back aurora n , and no swelling in the extremities. She reports no abnormal mole, no jaundice, and no rashes. She reports no loss of consciousness, no weakness, no numbness, no seizures, no dizziness, and no headaches. She reports no depression, no sleep disturbances, feeling safe in relationship, and no alcohol abuse. She reports no fatigue. She reports no swollen glands and no bruising. She reports no runny nose, no sinus pressure, no itching, no hives, and no frequent sneezing. ROS as noted in the HPI Physical Exam Patient is a 60-year-old female. Constitutional: General Appearance well nourished and developed and healthy-appearing. Level of Distress NAD. Ambulation ambulating normally. Cardiovascular: Apical Impulse not displaced or no thrill. Heart Auscultation normal s1 and s2; no murmurs, rubs, or gallops; and RRR. Arterial Pulses no abdominal aorta bruits, femoral bruits, or popliteal bruits and 2+ bilateral, carotid 2+ bilateral, femoral 2+ bilateral, popliteal 2+ bilateral, and dorsalis p james 2+ bilateral. Edema no edema or varicosities. Lungs: Repiratory Effort no dyspnea. Percussion no hyperresonance or dullness or flatness. Auscultation no wheezing, rhonchi, or rales / crackles and breathing sounds normal, good air movement, and CTA except as noted. Abdomen: Bowl Sounds normal. Inspection and Palpation no tenderness, guarding, masses, or rebound tenderness and soft and non-distended. Liver non-tender and no hepatomegaly. Spleen non-tender and no splenomegaly. Hernia none palpable. Musculoskeletal System: Gait And Stance normal gait and stance. Digits and Nails normal nails and no cyanosis. Neurologic: Cranial Nerves grossly intact. Reflexes DTRs 2+ bilaterally throughout. Sensation grossly intact. Lymph Nodes: Lymph Nodes no cervical LAD, supraclavicular LAD, axillary LAD, or inguinal LAD. Eyes: Lids and Conjunctivae no discharge or pallor and non-injected. Pupils PERRLA. Cornea grossly intact. EOM EOMI. Lens clear. Sclera non-icteric. Neck: Neck no masses, enlarged lymph nodes, or carotid bruits and supple and trachea midline. Thyroid no enlargement or nodules and non-tender. Skin: Inspection and Palpation no rash, lesions, ulcers, jaundice, or abnormal nevi. 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 Coronary arteriosclerosis I25.810: Atherosclerosis of coronary artery bypass graft(s) without angina pectoris Discussion Notes HISTORY AND PHYSICAL [id number] DAMIAN ALEJO I have discussed the patient's disease process with her in detail as well as the alternative methods of treatment. We dis cussed coronary bypass including the expected benefits and risk which include bleeding, infection, stroke, , and the imponderables. She understands that we will open her chest to use left internal thoracic artery as well as her greater saphenous vein in her right thigh. She understands all of the above and wishes to proceed with planned surgery JUDAH VELÁZQUEZ MD at 1326 CC: [id number] DICTATION DATE: 11/11/16 1030 BUTTON CLAMPER: AMAURI 11/11/16 1237 ADM IN [facility] [address] [id number]
--- NOTE | 2016-11-13 17:42 | NUR ---
1340-NOTED UCAF-RATE 120-160-ABP DECREASE TO 94 SYS-CVP INCREASE TO 8-DR VELÁZQUEZ AT [facility]-DIG LEVEL STAT-ABG STAT 1400-KCL 5MEQ-DIG 0.5 IVP OVER 2MIN GIVEN
--- NOTE | 2016-11-13 17:45 | NUR ---
1700-STATUS REPORT CALLED TO DR VELÁZQUEZ- CONTINUE SAME COURSE OF RX
--- NOTE | 2016-11-13 19:15 | NUR ---
REPORT RECVD. CARE ASSUMED. INITIAL ASSMNT COMPLETED. RESTING WITH NO DISTRESS. RESP EVEN AND UNLABORED. SHALLOW. SPO2 96%. LUNG SOUNDS DIM IN BASES. UCAFIB ON THE MONITOR. TEMP PM INTACT AT VVI 60. PULSES PALP. RIGHT RADIAL A-LINE INTACT WITH GOOD WAVE FORM SEEN. SYS B/P WITHIN PARAMETERS. RIGHT IJ SWAN LOCKED, PATENT, AND SECURED. CARDIAC MONITORING PER VIGILENCE WITHIN PARAMETERS. STERNAL DRESSINGS CDI. CHEST TUBES X3 PATENT AND SECURED TO 20 S SX. NO AIR LEAK NOTED. MINIMAL SEROUS DRNG SEEN. ABD SOFT, BS HYPO X4. F/C PATENT WITH PHI UOP TO CRITICORE. REINFORCING STEEL PLACER MORPHINE PROVIDING EFFECTIVE PAIN CONTROL. TEDS/SCDS IN USE. 1:[address] CONT CURRENT POC.
--- NOTE | 2016-11-13 21:00 | NUR ---
DR VELÁZQUEZ UPDATED WITH ABGS AND ALL VITAL SIGNS, WILL CONT MEDS ORDERED.
--- NOTE | 2016-11-13 23:15 | NUR ---
REASSESSMENT COMLETED. SEE FLOWSHEET FOR ALL FINDINGS. RESTING WITH NO DISTRESS. RESP EVEN AND UNLABORED. SHALLOW. SPO2 96%. LUNG SOUNDS DIM IN BASES. UCAFIB ON THE MONITOR. TEMP PM INTACT AT VVI 60. PULSES PALP. RIGHT RADIAL A-LINE INTACT WITH GOOD WAVE FORM SEEN. SYS B/P WITHIN PARAMETERS. RIGHT IJ SWAN LOCKED, PATENT, AND SECURED. CARDIAC MONITORING PER VIGILENCE WITHIN PARAMETERS. STERNAL DRESSINGS CDI. CHEST TUBES X3 PATENT AND SECURED TO 20 SM SX. NO AIR LEAK NOTED. MINIMAL SEROUS DRNG SEEN. ABD SOFT, BS HYPO X4. F/C PATENT WITH PHI UOP TO CRITICORE. NOC ANALYST MORPHINE PROVIDING EFFECTIVE PAIN CONTROL. TEDS/SCDS IN USE. 1:[address] CONT CURRENT POC.
[2016-11-14] VITALS (80 sets, daily range): BP systolic 99–137; BP diastolic 40–67
--- NOTE | 2016-11-14 00:45 | NUR ---
0045: Report rec'd and care assumed at this time. Pt rec'd resting HOB 30 degrees with eyes closed. Open to verbal Pupils SHANE+ bilat. Pt alert and oriented. Pt c/o pain at incision site. Pt able to move x4 extrem vs gravity. Pt breathing 022LNC with RR20x with SPO2 99% Lungs with crackles heard in upper LFs with auscultation. Encouraged DBC. Pt with strong non productive cough at this time. S1S2 rapid irregular Afib on CM with variable rate 110-150 bpm. Midline sternal incision CDI with TPM wires taped intact to distal portion of dressing with TPM VVI 50/0/10 showing V-Sense. x3 pericardial drain tubes taped intact arising out of epigastric area of dressing all to 20cm Sx and Atrium collection system. See I/O for outputs. Right arm Radial ART line intact with armboard support 0'd and transduced to CM with proper wf and monitorring. Right lower extrem dressings intact with x1 GRUPO just distal to knee to bulb sx with scant return. Right Jugular [place] Mer catheter with dressing intact. PA-PA Distal, CVP-Prox Inj, Plasmalyte-Prox Infusion. All pressure lines transduced to CM. LDLSC CDI with NS via buetrol infusing 10 cc/hr with MS04 LIFE SKILLS COORDINATOR 05/11/23. Pt demonstrated used of LIFE SKILLS COORDINATOR control. ABD soft NT BS hypoactive x4. Criticore to gravity with 20-30 cc/hr dark yellow UOP. SR up x2, call light in reach, All monitors on and alarms intact.
--- NOTE | 2016-11-14 03:00 | NUR ---
0300: Pt repositioned HOB 40 degrees. Encouraged DBC. RT in room and IS done with max TV 1000cc achieved. (Avg 750cc) Pt with strong non productive cough. Pt remains in Afib on CM with variable rate 90-130 bpm with SBP 123. FSBS 95 and Insulin decreased to 1 unit/hr at this time. No change in other IVF UOP remains 20-30cc/hr.
--- NOTE | 2016-11-14 05:00 | NUR ---
0500: Pt remains in bed with eyes closed at this time. Open to verbal. Pt remains Afib with variable rate. Occasional runs atrial tachycardia with rates 130-150 bpm. TPM remains VVI 50/0/10 V-Sense. Pt remains on 022LNC with SPO2 96% [id number]. No change in IVF/UOP. Pt c/o soreness controlled with MS04 INTERACTIVE ACCOUNT MANAGER.
[2016-11-14 05:25] LABS: MCH 29.1 pg (26.0-34.0); MCHC 33.3 g/dL (31.0-37.0); RDW 14.1 % (11.5-14.5)
[2016-11-14 05:32] LABS: HEMATOCRIT 29.7 % (36.0-48.0); HEMOGLOBIN 9.9 g/dL (12-16); MCV 87.4 fL (80.0-100.0); RBC 3.4 10x6/uL (4.00-5.40); WBC 10.5 10x3/uL (4.8-10.8)
[2016-11-14 05:49] LABS: ALBUMIN 2.9 g/dL (3.4-5.0); ALKALINE PHOSPHATASE 36 U/L (46-116); ALT (SGPT) 22 U/L (10-68); CALC OSMOLALITY 284 mosm/kg (275-300); CALCIUM 8.3 mg/dL (8.5-10.1); CARBON DIOXIDE 29.1 mmol/L (21.0-32.0); CHLORIDE - SERUM 109 mmol/L (98-107); CREATININE - SERUM 0.8 mg/dL (0.6-1.3); GLUCOSE 104 mg/dL (74-106); POTASSIUM - SERUM 4.5 mmol/L (3.5-5.1); PROTEIN - SERUM 5.2 g/dL (6.4-8.2); SODIUM 142 mmol/L (136-145); UREA NITROGEN 18 mg/dL (7-18); eGFR NON AFRICAN AMERICAN 77 mL/min (90-120)
[2016-11-14 07:25] LABS: MAGNESIUM - SERUM 2.3 mg/dL (1.8-2.4)
[2016-11-14 08:01] LABS: DIGOXIN 1.67 ng/mL (0.90-2.00)
--- NOTE | 2016-11-14 17:53 | NUR ---
0730-RECIEVED PER FLOW SHEET-ATRIAL FLUTTER 150-PACER SET AT 50/10 VVI-PT SLOW TO RESPOND-STAT MAG ORDERED AND DR VELÁZQUEZ NOTIFIED OF CURRENT STATUS /ABG-ADDITIONAL ORDER FOR SERUM DIG AND AMMONIA LEVELS-LOPRESSOR PO 100MG GIVEN 0800-CALLED SERUM DIG AND MAG LEVELS. NOTED-AFIB AND FLUTTER 90-130 REMOVED SCORER HELPER FROM PT USAGE-SEDATION SCALE -0815-AMMONIA LEVEL DRAWN ORDERED NOTED L IJ BROOKE IGNACIO DRG NOT ADHERED PER POLICY-SAME CHANGED PER PROTOCOL AND ADDED STERI STRIP TAPE TO HELP ADHERE-PT DIAPHORETIC 0845-AMMONIA LEVEL CALLED TO DR VELÁZQUEZ-ORDER RECIEVED-SCORER HELPER REMAINS AWAY FROM PT USAGE -AND NOTED INCREASED LETHARGY-NOT ABLE TO FOLLOW COMMANDS/DIRECTION-RR 20-O2SAT 97-2L HOB ELEVATED AT 30 0915-UPDATE OF PT STATUS GIVEN TO DR VELÁZQUEZ-NO ADDITIONAL ORDERS AT THIS TIME 1215-PT AWAKENS SLIGHTLY EASIER TO VERBAL-DR VELÁZQUEZ AT BEDSIDE-NOTED CONT A FLUTTER 90-120-WITH OCCASIONAL RATES OF 150 FOR 120SEC. WITH DECREASE TO AFLUTTER 90-DIG 0.25 IVP GIVEN ORDERED 1400-DILTIAZEM GTT STARTED AT 2.5MG/H IN L CVL-INSULIN GTT IN R IJ 1530-COMPLETE AM CARE AND DRGS CHANGED-PT AWAKENS AND VERBALLY REQUESTING PAIN MEDICATION-1MG MORPHINE SCORER HELPER GIVEN AND REMOVED SCORER HELPER USE-REPOSITIONED TO L SIDE 1750-UPDATE CALLED TO DR VELÁZQUEZ-REMAINS ON DILTIAZEM AT 2.5MG/H
--- NOTE | 2016-11-14 19:45 | NUR ---
REPORT RECIEVED. ASSESSMENT COMPLETE PER FLOW SHEET. VSS. PT AWAKE ALERT ORIENTED X3 DISORIENTED TO SITUATION REORIENTED STATES UNDERSTANDING. EYES PERRLA 3MM BRISK. O2 VIA NC 2L O2 SAT 97% RR 16 NON LABORED RUL RML VICKIE CLEAR BILAT LOWER LOBES DEMINISHED. HEART S1S2 RUB NOTED HR 91 ATRIAL FLUTTER MIDSTERNAL DRSG CDI TPM NOTED VVI 50 VMA [address] X3 NO AIR LEAK NOTED SEROUS DRAINGE AT THIS TIME. BS HYPO ACTIVE X4 ABD FLAT NON TENDER. KRUGER PATENT PHI URINE NOTED. L SUBCLAVIAN CVL PATENT CDI R IJ SWAN PATENT CDI REFER TO FLOW SHEET FOR INFUSIONS. R RADIAL ART LINE ZEROED WITH GOOD WAVEFORM BP 126/54 WRIST PROTECTOR ON EXTREMTY PINK WITH GOOD SENSATION. R LEG INCISION DRSG CDI BILAT TEDS SCDS ON. BIALT PEDAL PULSES PALP L RADIAL PULSE PALP R BRACHIAL PULSE PALP. PT RESTING COMFORTABLY. DENIES NEEDS. WILL CONTINUE TO MONITOR
--- NOTE | 2016-11-14 20:20 | NUR ---
PT GIVEN PM MEDICATIONS AT THIS TIME. HR 106 UNCONTROLLED FLUTTER. GIVEN 100 MG METOPROLOL WILL REASSESS
--- NOTE | 2016-11-14 21:10 | NUR ---
HR NOW CONTROLLED FLUTTER RATE 90. DENIES PAIN OR NEEDS. VSS. WILL CONTINUE TO MONITOR
--- NOTE | 2016-11-14 23:10 | NUR ---
REASSESSMENT COMPLETE PER FLOW SHEET. VSS. NO NEW CHANGES. WILL CONTINUE TO MONITOR
[2016-11-15] VITALS (29 sets, daily range): BP systolic 100–132; BP diastolic 38–89; Ht 170.2 cm; Wt 78.8 kg
--- NOTE | 2016-11-15 01:18 | NUR ---
REPOSITIONED ON R SIDE FOR COMFORT. IS/COUGH/DEEP BREATHE ENCOURAGED. STRONG EFFORT. NO NEW FINDINGS. VSS. WILL CONTINUE TO MONITOR
--- NOTE | 2016-11-15 03:20 | NUR ---
REASSESSMENT COMPLETE PER FLOW SHEET. PT NOW IN ATRIAL FLUTTER RATE OF 89. NO FURTHER NEW FINDINGS. RESTING COMFORTABLY. WILL CONTINUE TO MONITOR
--- NOTE | 2016-11-15 05:08 | NUR ---
RESP AT BEDSIDE. EKG OBTAINED. NO NEW FINDINGS.
[2016-11-15 06:36] LABS: HEMATOCRIT 29.1 % (36.0-48.0); HEMOGLOBIN 9.5 g/dL (12-16); MCH 28.7 pg (26.0-34.0); MCHC 32.6 g/dL (31.0-37.0); MCV 87.9 fL (80.0-100.0); MEAN PLATELET VOLUME 9.6 fL (7.4-10.4); PLATELET COUNT 86 10x3/uL (130-400); RBC 3.31 10x6/uL (4.00-5.40); RDW 13.6 % (11.5-14.5); WBC 9.2 10x3/uL (4.8-10.8)
[2016-11-15 07:02] LABS: ALBUMIN 2.4 g/dL (3.4-5.0); ALKALINE PHOSPHATASE 45 U/L (46-116); ALT (SGPT) 18 U/L (10-68); BILIRUBIN - TOTAL 0.77 mg/dL (0.2-1.3); CALC OSMOLALITY 288 mosm/kg (275-300); CALCIUM 8.1 mg/dL (8.5-10.1); CHLORIDE - SERUM 107 mmol/L (98-107); CREATININE - SERUM 0.7 mg/dL (0.6-1.3); GLUCOSE 123 mg/dL (74-106); POTASSIUM - SERUM 3.9 mmol/L (3.5-5.1); PROTEIN - SERUM 5.1 g/dL (6.4-8.2); SODIUM 143 mmol/L (136-145); UREA NITROGEN 21 mg/dL (7-18); eGFR NON AFRICAN AMERICAN 90 mL/min (90-120)
--- NOTE | 2016-11-15 08:00 | NUR ---
DR. VELÁZQUEZ AT BEDSIDE. SWAN IGNACIO PULLED OUT. CHEST TUBES X3 D/C'D PER DR. VELÁZQUEZ. PT TOLERATED WELL. BATH AND LINEN CHANGE COMPLETED. GRUPO DRAIN X 1 TO RIGHT LEG D/C'D AND DRESSINGS CHANGED PER MD ORDERS. RIGHT IJ CORDIS D/C'D. CATH TIP INTACT. RIGHT RADIAL A-LINE D/C'D WITH CATH TIP INTACT. PT TOLERATED WELL. VSS AT THIS TIME.
[2016-11-15 08:02] LABS: PLATELET ESTIMATE DECREASED
--- NOTE | 2016-11-15 10:30 | NUR ---
ORAL CARE DONE WITH PERIDEX.
--- NOTE | 2016-11-15 14:10 | NUR ---
PT AMBULATED WITH PHYSICAL THERAPY. TOLERATED WELL. ASSISTED BACK TO BED. CALL LIGHT WITHIN REACH.
--- NOTE | 2016-11-15 16:24 | NUR ---
PT RESTING IN BED WITH EYES CLOSED. RESP EQUAL AND UNLABORED. CALL LIGHT WITHIN REACH.
--- NOTE | 2016-11-15 17:47 | NUR ---
PT UP TO RESTROOM. VOIDED WITHOUT DIFFICULTY. HAD BM. ASSISTED BACK TO CHAIR. CALL LIGHT WITHIN REACH.
--- NOTE | 2016-11-15 19:00 | NUR ---
REPORT RECIEVED. ASSESSMENT COMPLET EPER FLOW SHEET. VSS. HEART S1S2 HR 92 NSR. WILL CONTINUE TO MONITOR DENIES PAIN OR NEEDS.
--- NOTE | 2016-11-15 21:00 | NUR ---
ASSISTED TO BEDSIDE COMMODE. VSS. 350 PHI URINE NOTED. NO NEW CHANGES WILL CONTINUE TO MONITOR
--- NOTE | 2016-11-15 23:00 | NUR ---
REASSESSMENT COMPLETE PER FLOW SHEET. VSS. NO NEW FINDINGS. YAKOV CNOTNIUE TO MONITOR
[2016-11-16] VITALS (26 sets, daily range): BP systolic 107–133; BP diastolic 51–74
--- NOTE | 2016-11-16 00:50 | NUR ---
ASSISTED TO BEDSIDE COMMODE. VSS. NO NEW CHANGES. 250 CC PHI URINE NOTED. WILL CONTINUE TO MONITOR
--- NOTE | 2016-11-16 03:00 | NUR ---
REASSESSMENT COMPLETEPER FLOW SHEET. VSS. NO NEW CHANGES. PT SLEEPING COMFORTABLY WILL CONTINUE TO MONITOR
[2016-11-16 07:02] LABS: ALBUMIN 2.4 g/dL (3.4-5.0); ANION GAP 11.2 mmol/L (8-16); BILIRUBIN - TOTAL 0.71 mg/dL (0.2-1.3); CALCIUM 7.7 mg/dL (8.5-10.1); CARBON DIOXIDE 26.7 mmol/L (21.0-32.0); POTASSIUM - SERUM 3.9 mmol/L (3.5-5.1)
[2016-11-16 07:12] LABS: CREATININE - SERUM 0.9 mg/dL (0.6-1.3)
[2016-11-16 07:17] LABS: HEMATOCRIT 26.6 % (36.0-48.0); MCH 29.1 pg (26.0-34.0); MCHC 33.8 g/dL (31.0-37.0); MCV 86.1 fL (80.0-100.0); MEAN PLATELET VOLUME 10.3 fL (7.4-10.4); RBC 3.09 10x6/uL (4.00-5.40); RDW 13.6 % (11.5-14.5); WBC 7.4 10x3/uL (4.8-10.8)
--- NOTE | 2016-11-16 07:30 | NUR ---
ORAL CARE DONE WITH PERIDEX
--- NOTE | 2016-11-16 08:15 | NUR ---
RECEIVED PT FOR CARE. PT SITTING UP IN CHAIR. NO NEEDS AT THIS TIME.
--- NOTE | 2016-11-16 11:25 | NUR ---
NOTIFIED MERY JHAVERI RN OF PT HEART RHYTHM IN A-FIB AT A RATE OF 135-155. UPDATED ON PT'S STATUS.
--- NOTE | 2016-11-16 12:33 | NUR ---
* Is the patient Alert and Oriented? Yes 0 * How many steps to enter\exit or inside your home? 3 0 * PCP Dr. Bautista in [place] 0 * Pharmacy [place] 0 * Preadmission Environment Home with Family 0 * ADLs Independent 0 * Equipment CPAP 0 * Additional services required to return to the preadmission environment? No 0 * Can the patient safely return to the preadmission environment? Yes 0 * Has this patient been hospitalized within the prior 30 days at any hospital? No Patient Name: DAMIAN ALEJO Admission Status: Elective Accout number: [id number] Admission Date: 11-12-2016 : 1955 Admission Diagnosis:ATHEROSCLEROSIS OF CABG W/O ANGINA PECTORIS Attending: SHERRIE Current LOS: 4 Anticipated DC Date: 11-19-2016 Planned Disposition: Home Primary Insurance: [employer] [facility] EX[facility] Discharge Planning Comments: CM met with patient to assess dc plans/needs. Patient states she lives at home with her 2 adult children. She reports she is independent with all ADL's & IADL's. She does not use any assistive devices for mobility and has not had home health services in the past. She states she has a C-Pap but does not use it regularly. At dc, she will return home with her family. No needs identified or verbalized at this time. CM will follow. Stoneworking Belt Sander: Socorro Breen
--- NOTE | 2016-11-16 13:05 | NUR ---
PT SITTING UP IN CHAIR. AMBULATED TO BATHROOM WITHOUT ASSISTANCE. NO S/S OF DISTRESS NOTED.
--- NOTE | 2016-11-16 16:35 | NUR ---
PT HAD COMPLETE BATH AND LINEN CHANGE. TOLERATED WELL. HAIR WASHED AND BRUSHED THROUGH. ASSISTED FROM CHAIR BACK INTO BED. CALL LIGHT WITHIN REACH. NO OTHER NEEDS AT THIS TIME.
--- NOTE | 2016-11-16 19:39 | NUR ---
REPORT RECIEVED. ASSESSMENT COMPLETE PER FLOW SHEET. VSS. PT IN UNCOTROLLED A FIB RATE OF 138 GIVEN 2100 METOPROLOL AND REQUIP EARLY. WILL REASSESS.
--- NOTE | 2016-11-16 21:00 | NUR ---
2100 MEDS ADM. ASSISTED TO BEDSIDE COMMODE. DENIES FURTHER NEEDS. NO NEW CHANGES. WILL CONTINUE TO MONITOR
--- NOTE | 2016-11-16 23:10 | NUR ---
REASSESSMENT COMPLETE VSS DENIES PAIN OR NEEDS. WILL CONTINUE TO MONITOR
[2016-11-17] VITALS (21 sets, daily range): BP systolic 112–147; BP diastolic 53–92
--- NOTE | 2016-11-17 01:12 | NUR ---
PT SLEEPING COMFORTABLY. VSS. HR 92 NSR.
--- NOTE | 2016-11-17 03:24 | NUR ---
REASSESSMENT COMPLETE PER FLOW SHEET. VSS. PT SLEEPING COMFORTABLY. WILL CONTINUE TO MONITOR
--- NOTE | 2016-11-17 05:00 | NUR ---
ASSISTED TO PA AND LAT. TOLERATED WELL. BACK TO BED PER REQUEST. NO NEW FINDINGS. VSS
[2016-11-17 07:05] LABS: HEMATOCRIT 25.6 % (36.0-48.0); HEMOGLOBIN 8.5 g/dL (12-16); MCH 28.9 pg (26.0-34.0); MCHC 33.2 g/dL (31.0-37.0); MCV 87.1 fL (80.0-100.0); MEAN PLATELET VOLUME 9.6 fL (7.4-10.4); RBC 2.94 10x6/uL (4.00-5.40); RDW 13.6 % (11.5-14.5); WBC 5.7 10x3/uL (4.8-10.8)
--- NOTE | 2016-11-17 07:20 | NUR ---
SHIFT ASSESSMENT COMPLETE PER FLOW SHEET NO NEW FINDINGS. PT HR 97 NSR. DENIES PAIN. GIVEN AM BREAKFAST ATE 100% R LEG DRSG CHANGE COMPLETE L CVL DRSG CHANGE COMPLETE. DENIES NEEDS VSS. WILL CONTINUE TO MONITOR
[2016-11-17 07:56] LABS: ALBUMIN 2.4 g/dL (3.4-5.0); ALKALINE PHOSPHATASE 50 U/L (46-116); ALT (SGPT) 17 U/L (10-68); BILIRUBIN - TOTAL 0.75 mg/dL (0.2-1.3); CARBON DIOXIDE 28.7 mmol/L (21.0-32.0); CHLORIDE - SERUM 107 mmol/L (98-107); CREATININE - SERUM 0.8 mg/dL (0.6-1.3); POTASSIUM - SERUM 3.9 mmol/L (3.5-5.1); PROTEIN - SERUM 5.4 g/dL (6.4-8.2); SODIUM 141 mmol/L (136-145); eGFR NON AFRICAN AMERICAN 77 mL/min (90-120)
[2016-11-17 08:04] LABS: CALC OSMOLALITY 285 mosm/kg (275-300); GLUCOSE 178 mg/dL (74-106); UREA NITROGEN 16 mg/dL (7-18)
--- NOTE | 2016-11-17 08:15 | NUR ---
MELANIA NOTIFIED PT REQUEST TUMS WITH MEALS. T ORDER FOR TUMS TO BE ADM ORDERED PLACED. WILL CONTINUE TO MONITOR
--- NOTE | 2016-11-17 08:36 | NUR ---
2100 MEDS ADM WITHOUT DIFFICULTY. NEEDS MET
--- NOTE | 2016-11-17 11:48 | NUR ---
REGULAR INSULIN ADMISTERED PER SLIDING SCALE. PT MEAL TRAY PROVIDED. VSS. CALL LIGHT WITHIN REACH.
--- NOTE | 2016-11-17 15:15 | NUR ---
REASSESSMENT VIA FLOWSHEET, SEE FOR DETAILS.
--- NOTE | 2016-11-17 16:50 | NUR ---
DINNER TRAY PROVIDED. VSS. PT VOICES NO ADDITIONAL NEEDS AT THIS TIME. CALL LIGHT WITHIN REACH.
--- NOTE | 2016-11-17 19:00 | NUR ---
PT RESTING QUIETLY UPON ENTERING ROOM. AROUSES EASILY, AOX4. NSR ON MONITOR, S1S2 HEARD. PERIPHERAL PULSES PRESENT. RESPIRATIONS NON LABORED, LUNG SOUNDS CLEAR. BOWEL SOUNDS ACTIVE X4. AMBULATES WITH MINIMAL ASSISTANCE TO BATHROOM. DENIES PAIN AT THIS TIME. FRESH WATER TO BEDSIDE. IS/COUGH/DB DONE WITH GOOD EFFORT. DENIES FURTHER NEEDS AT THIS TIME. CALL LIGHT AND BEDSIDE TABLE WITHIN PT REACH. CPOC.
--- NOTE | 2016-11-17 21:11 | NUR ---
PT UP TO BATHROOM WITH MINIMAL ASSISTANCE. NO C/O PAIN AT THIS TIME. PARTIAL LINEN CHANGE COMPLETE. VSS. DENIES FURTHER NEEDS AT THIS TIME. CPOC.
--- NOTE | 2016-11-17 23:00 | NUR ---
REASSESSMENT COMPLETE, NO CHANGES NOTED AT THIS TIME. PT RESTING COMFORTABLY WITH VSS. DENIES NEEDS. CPOC.
[2016-11-18] VITALS (26 sets, daily range): BP systolic 86–140; BP diastolic 46–75
--- NOTE | 2016-11-18 01:29 | NUR ---
PT C/O PAIN AT THIS TIME AT 12/09. PRN PAIN MEDICATION GIVEN. PT REPOSITIONED FOR COMFORT. DENIES FURTHER NEEDS AT THIS TIME. CPOC.
--- NOTE | 2016-11-18 04:48 | NUR ---
PT C/O PAIN AT THIS TIME, 09/08. PRN PAIN MEDICATION GIVEN.
--- NOTE | 2016-11-18 05:00 | NUR ---
PT RESTING QUIETLY WITH NON LABORED RESPIRATIONS. PT CURRENTLY IN AFIB HR 98. SBP 120'S. NO C/O PAIN AT THIS TIME. NO S/S OF DISTRESS.
[2016-11-18 06:40] LABS: HEMATOCRIT 25.8 % (36.0-48.0); HEMOGLOBIN 8.5 g/dL (12-16); MCH 28.8 pg (26.0-34.0); MCHC 32.9 g/dL (31.0-37.0); MCV 87.5 fL (80.0-100.0); MEAN PLATELET VOLUME 10.1 fL (7.4-10.4); RBC 2.95 10x6/uL (4.00-5.40); RDW 13.8 % (11.5-14.5); WBC 6.7 10x3/uL (4.8-10.8)
[2016-11-18 07:00] LABS: ALBUMIN 2.3 g/dL (3.4-5.0); ALKALINE PHOSPHATASE 51 U/L (46-116); ALT (SGPT) 19 U/L (10-68); BILIRUBIN - TOTAL 0.86 mg/dL (0.2-1.3); CALC OSMOLALITY 284 mosm/kg (275-300); CALCIUM 8.3 mg/dL (8.5-10.1); CARBON DIOXIDE 29.2 mmol/L (21.0-32.0); CHLORIDE - SERUM 106 mmol/L (98-107); CREATININE - SERUM 0.7 mg/dL (0.6-1.3); GLUCOSE 174 mg/dL (74-106); POTASSIUM - SERUM 4.2 mmol/L (3.5-5.1); PROTEIN - SERUM 5.5 g/dL (6.4-8.2); SODIUM 141 mmol/L (136-145); UREA NITROGEN 13 mg/dL (7-18); eGFR NON AFRICAN AMERICAN 90 mL/min (90-120)
--- NOTE | 2016-11-18 07:30 | NUR ---
SHIFT ASSESSMENT VIA FLOWSHEET, SEE FOR DETAILS.
--- NOTE | 2016-11-18 09:05 | NUR ---
NO VISITORS AT THIS TIME. AFIB ON CM. PT OOB, CALL LIGHT WITHIN REACH.
--- NOTE | 2016-11-18 10:32 | NUR ---
SPOKE WITH MERY JHAVERI RN, REPORTED PT STATUS- AFIB RATE 140s-150s WITH 85 SBP.
--- NOTE | 2016-11-18 11:15 | NUR ---
REASSESSMENT VIA FLOWSHEET, SEE FOR DETAILS.
--- NOTE | 2016-11-18 11:57 | NUR ---
DR RUIZ HERE TO SEE PATIENT, NEW ORDERS RECEIVED.
--- NOTE | 2016-11-18 12:21 | NUR ---
Nutrition Follow Up: Pt is eating 100% meal avg on an AHA diet. Wt stable. +BM 11/17/16. Labs reviewed - Glucose elevated. Meds noted including Humulin, Lactulose. Rec continue current diet. If glucose continues elevated rec AHA ADA diet. RD following.
--- NOTE | 2016-11-18 15:15 | NUR ---
REASSESSMENT VIA FLOWSHEET, SEE FOR DETAILS.
--- NOTE | 2016-11-18 17:00 | NUR ---
DINNER TRAY PROVIDED, PT POSITIONED FOR COMFORT. AFIB ON CM. VOICES NO ADDDITIONAL NEEDS AT THIS TIME. CALL LIGHT WITHIN REACH.
--- NOTE | 2016-11-18 19:00 | NUR ---
1900: Pt assisted up to bedside commode. Pt gait steady and walks unassisted to bathroom. Pt returned to bed and all monitors and alarms reestablished.
--- NOTE | 2016-11-18 19:30 | NUR ---
1930: Pt rec'd resting HOB >30 degrees with eyes open. Pupils SHANE+ bilat. SMCx4=bilat superior court justice. Pt moves extrem x4 vs gravity without difficulty. Pt breathing room air at this time with SP02 94% with [id number]. Lungs with decreased based bilat. IS done with max TV 1000cc achieved (AVG 750cc) Encouraged DBC. Irregular heart sounds with auscultation and UAfib on CM 110-120's at this time. PPPx4=irregular bilat. Midline sternal incisions CDI with TPM wires taped intact. TPM VVI 50/0/10 showing V-sense. ABD soft NT BSx4 active. Pt denies difficulty with elimination.
--- NOTE | 2016-11-18 23:00 | NUR ---
2300: Pt assisted to bathroom with minimal assistance. Pt voided 400cc of yellow urine. Pt back to bed and all monitors and alarms reestablished.
[2016-11-19] VITALS (23 sets, daily range): BP systolic 90–140; BP diastolic 50–76
--- NOTE | 2016-11-19 01:00 | NUR ---
0100: Pt remains UAfib 113 on CM with SBP 119. No change in IVF/UOP at this time. Pt resting with eyes closed at this time.
--- NOTE | 2016-11-19 03:00 | NUR ---
0300: Pt remains resting with eyes closed at this time. Pt remains Afib with variable rate 90-120bpm with SBP >110. Pt remains 022LNC with SPO2 99%.
--- NOTE | 2016-11-19 04:30 | NUR ---
0430: Pt escorted to radiology for PA/LAT. Xray completed and pt returned to room via WC without incident. Pt to bathroom. Gait steady. Pt returned to room and all monitors reestablished. Pt is Afib 90's on CM with SBP 90's at this time. Pt on room air RR18 with SPO2 94.
--- NOTE | 2016-11-19 06:00 | NUR ---
0600: Pt remains resting HOB 30 degrees with eyes open. Pt remains Afib 90's with SBP 90-100. No change in RESP/CV/NV status.
[2016-11-19 06:01] LABS: HEMATOCRIT 25.2 % (36.0-48.0); HEMOGLOBIN 8.2 g/dL (12-16); MCH 28.7 pg (26.0-34.0); MCHC 32.5 g/dL (31.0-37.0); MCV 88.1 fL (80.0-100.0); MEAN PLATELET VOLUME 9.8 fL (7.4-10.4); RBC 2.86 10x6/uL (4.00-5.40); RDW 13.7 % (11.5-14.5); WBC 8.3 10x3/uL (4.8-10.8)
[2016-11-19 06:20] LABS: ALBUMIN 2.3 g/dL (3.4-5.0); ALKALINE PHOSPHATASE 51 U/L (46-116); ALT (SGPT) 17 U/L (10-68); BILIRUBIN - TOTAL 1.18 mg/dL (0.2-1.3); CALC OSMOLALITY 286 mosm/kg (275-300); CALCIUM 8.3 mg/dL (8.5-10.1); CARBON DIOXIDE 30.2 mmol/L (21.0-32.0); CHLORIDE - SERUM 106 mmol/L (98-107); CREATININE - SERUM 0.8 mg/dL (0.6-1.3); GLUCOSE 166 mg/dL (74-106); POTASSIUM - SERUM 4.2 mmol/L (3.5-5.1); PROTEIN - SERUM 5.4 g/dL (6.4-8.2); SODIUM 141 mmol/L (136-145); eGFR NON AFRICAN AMERICAN 77 mL/min (90-120)
[2016-11-19 06:25] LABS: UREA NITROGEN 18 mg/dL (7-18)
--- NOTE | 2016-11-19 07:43 | NUR ---
ORAL CARE DONE WITH PERIDEX
--- NOTE | 2016-11-19 18:46 | NUR ---
ORAL CARE PERFORMED WITH PERIDEX ORDERED
--- NOTE | 2016-11-19 21:00 | NUR ---
2100: Assisted patient up to bathroom. Pt gait steady. Pt returned to bed and all monitors and alarms reestablished. Pt CAfib 80's on CM with SBP 120's. Pt remains on RA with RR19x with SPO2 98%. Pt without c/o at this time.
--- NOTE | 2016-11-19 22:30 | NUR ---
2230: Pt remains resting HOB 30 degree with eyes closed. Pt remains CAfib 80's with SBP 120's. Pt RR20x with SPO2 96% on RA.
[2016-11-20] VITALS (20 sets, daily range): BP systolic 89–154; BP diastolic 45–69
--- NOTE | 2016-11-20 | NUR ---
0000: Pt awake and assisted OOB to bathroom. Pt walks unassisted with steady gait. Pt urinated dark yellow UOP (See I/O) Pt back to bed and all monitors and alarms reestablished. Pt remains CAFib 86 with SBP 120's at this time.
--- NOTE | 2016-11-20 04:00 | NUR ---
0400: Pt up OOB with steady gait. Pt transported to radiology with RN at side for PA/LAT. Pt returned to room and all monitors reestablished. Pt is showing regular Sinus Rhythm on CM with rates 80's at this time. Pt remains RA RR16x with SPO2 96%.
[2016-11-20 06:19] LABS: HEMATOCRIT 23.3 % (36.0-48.0); HEMOGLOBIN 7.8 g/dL (12-16); MCH 28.8 pg (26.0-34.0); MCHC 33.5 g/dL (31.0-37.0); MEAN PLATELET VOLUME 9.8 fL (7.4-10.4); RBC 2.71 10x6/uL (4.00-5.40); RDW 13.8 % (11.5-14.5); WBC 6.9 10x3/uL (4.8-10.8)
[2016-11-20 06:49] LABS: ANION GAP 9.8 mmol/L (8-16); CALCIUM 8.7 mg/dL (8.5-10.1); CARBON DIOXIDE 29.1 mmol/L (21.0-32.0); CREATININE - SERUM 0.9 mg/dL (0.6-1.3); POTASSIUM - SERUM 3.9 mmol/L (3.5-5.1)
--- NOTE | 2016-11-20 06:50 | NUR ---
0650: Pt up OOB to bathroom and back to chair. Pt placed HOB 45 degrees with eyes open. Pt remains SR 80's on CM.
--- NOTE | 2016-11-20 13:04 | OP ---
PATIENT NAME: DAMIAN ALEJO MEDICAL RECORD: [id number] :53 LOCATION:[facility].CV04 ADMISSION DATE:11/12/16 SURGEON: YOU GIRON MD OPERATION DATE: 11/12/16 SURGEON: You Giron M.D. ANESTHESIA: General endotracheal anesthesia by Dr. Islas. PROCEDURE: Aortocoronary artery bypass utilizing left internal thoracic to the left anterior descending artery, reverse saphenous vein segment graft to the posterior descending coronary artery. PREOPERATIVE DIAGNOSIS: Angina pectoris. POSTOPERATIVE DIAGNOSIS: Angina pectoris. INDICATION FOR OPERATION: Angina pectoris. FINDINGS OF OPERATION: The greater saphenous vein from the right leg was an excellent conduit. The left internal thoracic was also a good caliber vessel although quite delicate. The target vessels were of good caliber and quality. ESTIMATED BLOOD LOSS: Cell Saver was used. PROCEDURE IN DETAIL: After informed consent, adequate preoperative medication, evaluation, the patient was brought to the operating room and placed on the table in the supine position. After induction of general endotracheal anesthesia and application of appropriate monitoring devices, the chest, neck, abdomen, and both legs were prepped and draped in sterile field utilizing Betadine scrub, alcohol, and Betadine solution. Betadine impregnated drape was also used. The greater saphenous vein was harvested from the right thigh through a small transverse incisions. Vein prepared and the leg was closed over drains utilizing 3-0 Vicryl and skin alton. A median sternotomy incision was used. Dissection was carried down to the fascia. Hemostasis maintained with electrocautery. The sternum was divided and the left internal thoracic was taken down and prepared for grafting. The patient given calculated doses of heparin, pericardium opened, patient cannulated in standard fashion, utilizing one aortic, one and two stage cannula in the atrium and inferior vena cava. The patient placed on cardiopulmonary bypass, cooled to 32 degrees Centigrade. A crossclamp was placed just proximal to the aortic cannula, placing cardioplegic solution through the aortic root. The patient was given a cold induction and cold maintenance. The patient given cold intermittent cardioplegic solution throughout the procedure either through the root, the grafts or a combination of both. The first vessel to be grafted was the posterior descending coronary artery. It was grafted end-to-side utilizing a running 7-0 Prolene suture. The graft was then measured back to the aorta and the proximal anastomosis fashioned utilizing a running 6-0 Prolene suture. Next, left internal thoracic was brought through a hole in the pericardium, sutured to the left anterior descending artery end-to-side, and utilized running 8-0 Prolene suture. Pedicle was attached to the epicardium with 6-0 Prolene suture. All maneuvers to remove trapped air performed. The patient given warm cardioplegia, reperfused in controlled reperfusion. The patient rewarmed to 37 degrees Centigrade. Two atrial and two ventricular pacing wires were placed on the heart, brought out through the epigastric area. The patient was weaned off of cardiopulmonary bypass. After being stable off of bypass, was given calculated dose of protamine to reverse the heparin. OPERATIVE REPORT [id number] DAMIAN ALEJO Hemostasis was achieved. A #40 right angle and #36 chest tubes brought in through the epigastric area and placed in the mediastinum. Separate left pleural tubes connected to underwater seal and suction. The chest was again irrigated. Instrument count and sponge count were correct times two. The chest was closed in layers utilizing #7 wire on the sternum, #2 Vicryl on the linea alba and pectoralis fascia, subcutaneous tissue approximated with 3-0 Vicryl and the skin approximated with 3-0 subcuticular Vicryl. Sterile dressings were applied. The patient tolerated the procedure well and was transferred to cardiovascular recovery in critical, but stable condition. YOU GIRON MD at 1304 CC: [id number] DICTATION DATE: 11/12/16 1500 SURGICAL CONSULTANT: AMAURI 11/15/16 0910 ADM IN [place] [id number] [place] [address]
--- NOTE | 2016-11-20 18:23 | NUR ---
ORALCARE PERFORMED WITH PERIDEX ORDERED
--- NOTE | 2016-11-20 20:30 | NUR ---
2030: Pt assisted to bathroom. Pt able to get OOB and walk to bathroom unassisted with steady gait. Pt returned to bed and all monitors reestablished and alarms set. Pt requested something for soreness. See EMAR, Rx admin. Pt remains SR on CM 80's with SBP 110-120. TPM unchanged VVI 50/0/10 V-Sense. Pt remains on RA RR16x with SPO2 96%. TEDs off to assess skin. Pt request to leave off for now. SCDs on and working bilaterally.
--- NOTE | 2016-11-20 23:05 | NUR ---
2305: Pt resting with eyes closed at this time. Pt remains SR 80's on CM.
[2016-11-21] VITALS (21 sets, daily range): BP systolic 85–144; BP diastolic 48–75
--- NOTE | 2016-11-21 02:30 | NUR ---
0230: Pt up to bathroom unassisted. Pt remains SR 80's on CM. No change in RESP/CV/NV status. No change in RESP/CV/NV status.
--- NOTE | 2016-11-21 04:45 | NUR ---
0445: Pt to radiology for PA/LAT. Pt able to stand and walk unassisted/steady gait. Pt returned to CV04 via WC and all monitors reestablished. Pt remains SR 80's on CM with SBP 110's. No change in RESP/NV status. Pt without c/o at this time.
--- NOTE | 2016-11-21 06:00 | NUR ---
0600: Unable to withdraw sample from Left DLSC after multiple attempts. DLSC ports flush easily, but do not withdraw. Notified Lab for need of periph. draw.
--- NOTE | 2016-11-21 06:10 | NUR ---
0610: Pt remains SR 80's on CM with SBP 110-120. Pt without c/o at this time. No change in RESP/CV/NV status.
--- NOTE | 2016-11-21 06:45 | NUR ---
ORAL CARE DONE WITH PERIDEX
[2016-11-21 06:52] LABS: HEMATOCRIT 25.8 % (36.0-48.0); HEMOGLOBIN 8.5 g/dL (12-16); MCH 28.6 pg (26.0-34.0); MCHC 32.9 g/dL (31.0-37.0); MCV 86.9 fL (80.0-100.0); RBC 2.97 10x6/uL (4.00-5.40); RDW 14.2 % (11.5-14.5); WBC 6.9 10x3/uL (4.8-10.8)
[2016-11-21 07:02] LABS: ANION GAP 9.9 mmol/L (8-16); CALCIUM 8.5 mg/dL (8.5-10.1); CARBON DIOXIDE 29.3 mmol/L (21.0-32.0); CREATININE - SERUM 0.9 mg/dL (0.6-1.3); POTASSIUM - SERUM 4.2 mmol/L (3.5-5.1)
--- NOTE | 2016-11-21 19:15 | NUR ---
REPORT RECVD. CARE ASSUMED. INITIAL ASSMNT COMPLETED. SEE FLOWSHEET FOR ALL FINDINGS. AWAKE AND AOX4. UP IN CHAIR AT BEDSIDE. RESP EVEN AND UNLABORED. LUNG SOUNDS CTA. SPO2 94% ON RA. SR ON THE MONITOR. PULSES PALP. TRACE GENERALIZED EDEMA NOTED. LEGS ELEFATED. STERNAL AND RIGHT LEG DRESSINGS CDI. TEMP PM INTACT AT VVI 50, SENSING ONLY. ABD SODT. BSA X4. UP TO BR WITH MINIMAL ASSIST. VOIDING NO DIFF. DENIES PAIN AT THIS TIME. C/L AND PO FLUIDS IN REACH. CONT CURRENT POC.
--- NOTE | 2016-11-21 21:30 | NUR ---
UP TO BR TO VOID AND BACK TO BED WITH MINIMAL ASSIST. HS MEDS AND HS SNACK PROVIDED WITH PRN NORCO FOR PAIN CONTROL AND REST. POSITIONED SANDRA F IN BED FOR COMFORT. HOB UP. C/L IN REACH. BED ALARM FOR SAFETY. CONT CURRENT POC.
--- NOTE | 2016-11-21 23:15 | NUR ---
REASSESSMENT COMPLETED. SEE FLOWSHEET FOR ALL FINDINGS. RESTING IN BED WITH NO DISTRESS. AOX4. RESP EVEN AND UNLABORED. LUNG SOUNDS CTA. SPO2 94% ON RA. SR ON THE MONITOR. PULSES PALP. TRACE GENERALIZED EDEMA NOTED. LEGS ELEFATED. STERNAL AND RIGHT LEG DRESSINGS CDI. TEMP PM INTACT AT VVI 50, SENSING ONLY. ABD SODT. BSA X4. UP TO BR WITH MINIMAL ASSIST. VOIDING NO DIFF. DENIES PAIN AT THIS TIME. C/L AND PO FLUIDS IN REACH. CONT CURRENT POC.
[2016-11-22] VITALS (14 sets, daily range): BP systolic 105–139; BP diastolic 52–69
--- NOTE | 2016-11-22 01:20 | NUR ---
RESTING WITH NO DISTRESS. VSS. SR ON THE MONITOR. NO NEEDS VOICED. HOB UP. C/L IN REACH. CONT CURRENT POC.
--- NOTE | 2016-11-22 05:00 | NUR ---
RETURNED FROM RADIOLOGY TO CHAIR AT BEDSIDE. VSS. NO NEEDS. C/L IN REACH. SR ON THE MONITOR. CONT CURRENT POC.
[2016-11-22 06:30] LABS: HEMOGLOBIN 7.8 g/dL (12-16); MCH 28.4 pg (26.0-34.0); MCHC 32.5 g/dL (31.0-37.0); MCV 87.3 fL (80.0-100.0); MEAN PLATELET VOLUME 9.6 fL (7.4-10.4); RBC 2.75 10x6/uL (4.00-5.40); RDW 14.5 % (11.5-14.5); WBC 6.9 10x3/uL (4.8-10.8)
[2016-11-22 06:42] LABS: CALC OSMOLALITY 289 mosm/kg (275-300); CALCIUM 8.5 mg/dL (8.5-10.1); CARBON DIOXIDE 29.2 mmol/L (21.0-32.0); CHLORIDE - SERUM 107 mmol/L (98-107); CREATININE - SERUM 0.8 mg/dL (0.6-1.3); GLUCOSE 182 mg/dL (74-106); SODIUM 142 mmol/L (136-145); UREA NITROGEN 18 mg/dL (7-18); eGFR NON AFRICAN AMERICAN 77 mL/min (90-120)
--- NOTE | 2016-11-22 07:15 | NUR ---
RECEIVED PT FOR CARE. PT SITTING UP IN CHAIR. VSS AT THIS TIME. CALL LIGHT WITHIN REACH.
[2016-11-22] MEDS ORDERED: BETAPACE 80 MG80 MG PO (08:21)
[2016-11-22] MEDS ORDERED: HYDROCODON-ACE1 EAC7 PO (08:26)
--- NOTE | 2016-11-22 09:07 | NUR ---
PT AMBULATED WITH PHYSICAL THERAPY. STEADY GAIT NOTED. VSS AT THIS TIME.
--- NOTE | 2016-11-22 09:47 | NUR ---
MERY JHAVERI RN AT BEDSIDE. RIGHT LEG EL REMOVED. PT TOLERATED WELL. TPM WIRES PULLED. ALL INCISIONS OPEN TO AIR.
--- NOTE | 2016-11-22 09:58 | NUR ---
FIRST UNIT OF PRBCs STARTED TO RIGHT DLSC. PT SITTING UP IN CHAIR. NO DISTRESS NOTED.
--- NOTE | 2016-11-22 10:31 | NUR ---
Patient Name: DAMIAN ALEJO Encounter No: [id number] : 1955 Primary Insurance: [employer] Anticipated DC Date: 11-19-2016 Planned Disposition: Home DCP follow-up note: Anticipate dc later today. Patient states her friend will drive her home from the hospital. Discussed home health services with patient. Declines at this time. She states her children will assist with any needs. Socorro Breen
--- NOTE | 2016-11-22 11:30 | NUR ---
PT UP TO RESTROOM. HAD LARGE SOFT BROWN BM. AMBULATED BACK TO BED. CALL LIGHT WITHIN REACH.
--- NOTE | 2016-11-22 12:00 | NUR ---
SECOND UNIT OF PRBCs FINISHED. PT TOLERATED WELL. VSS. NO S/S OF DISTRESS NOTED.
--- NOTE | 2016-11-22 13:30 | NUR ---
MERY JHAVERI AT BEDSIDE AND DISCUSSED DISCHARGE INSTRUCTIONS WITH PT. SHE VOICED UNDERSTANDING.
--- NOTE | 2016-11-22 14:15 | NUR ---
LEFT DLSC D/C'D WITH CATH TIP INTACT. PT TOLERATED WELL. SMALL AMOUNT OF REDNESS NOTED AT CVL INSERTION SITE. PT INSTRUCTED TO KEEP CLOSE EYE ON SITE AND NOTIFY OF ANY DRAINAGE OR FEVER.
--- NOTE | 2016-11-22 16:15 | NUR ---
PT TAKEN BY WHEELCHAIR TO VEHICLE. ASSISTED INTO PASSENGER SEAT. PT HAS ALL DISCHARGE INSTRUCTIONS IN HAND. REPORTS THAT SHE HAS ALL OTHER BELONGINGS WITH HER. NO S/S OF DISTRESS NOTED.
== END 2016-11-22 16:15 | disposition home or self-care (01) | DRG 236 ==
LOC: D.SDCHOLD 05:00 → D.CVICU 05:00 → D.SDCHOLD 07:30 → D.CVICU 13:31
PROVIDERS: ADMIT Internal Medicine Cardiovascular Disease
PROC: 021009W Bypass Coronary Artery, One Artery from Aorta with Autologous Venous Tissue, Open Approach (ICD-10-PCS; 2016-11-12)
PROC: 06BP0ZZ Excision of Right Saphenous Vein, Open Approach (ICD-10-PCS; 2016-11-12)
PROC: B246ZZ4 Ultrasonography of Right and Left Heart, Transesophageal (ICD-10-PCS; 2016-11-12)
PROC: 02100AC Bypass Coronary Artery, One Artery from Thoracic Artery with Autologous Arterial Tissue, Open Approach (ICD-10-PCS; principal; 2016-11-12 07:30)
DX: I25.810 Atherosclerosis of coronary artery bypass graft(s) without angina pectoris (principal); I48.3 Typical atrial flutter; D62 Acute posthemorrhagic anemia; E78.00 Pure hypercholesterolemia, unspecified; I10 Essential (primary) hypertension; E11.9 Type 2 diabetes mellitus without complications; K21.9 Gastro-esophageal reflux disease without esophagitis; F32.9 Major depressive disorder, single episode, unspecified; I25.2 Old myocardial infarction; I48.91 Unspecified atrial fibrillation; I95.89 Other hypotension

== ENCOUNTER → 2016-12-09 12:32 | Outpatient (CLI) | payer BC ==
[2016-11-15 14:54] VITALS: BMI 26.4
[~2016-12-09 12:32] MED LIST changes: +BETAPACE 80 MG80 MG PO; +HYDROCODON-ACE1 EAC7 PO
[2016-12-09 13:02] LABS: HEMATOCRIT 38.5 % (36.0-48.0); HEMOGLOBIN 12.6 g/dL (12-16); MCHC 32.7 g/dL (31.0-37.0); MCV 82.6 fL (80.0-100.0); RBC 4.66 10x6/uL (4.00-5.40); RDW 14.5 % (11.5-14.5)
[2016-12-09 13:14] LABS: ANION GAP 11.2 mmol/L (8-16); CALCIUM 8.6 mg/dL (8.5-10.1); CARBON DIOXIDE 29.3 mmol/L (21.0-32.0); CREATININE - SERUM 1.2 mg/dL (0.6-1.3); POTASSIUM - SERUM 4.5 mmol/L (3.5-5.1)
== END | disposition home or self-care (01) ==
LOC: D.LAB 10:00
PROVIDERS: Internal Medicine Cardiovascular Disease
DX: D64.9 Anemia, unspecified (principal); J90 Pleural effusion, not elsewhere classified; Z95.1 Presence of aortocoronary bypass graft

== ENCOUNTER 2019-02-26 13:17 | Inpatient (IN) | payer MEDICAID ==
[~2019-02-26] VITALS: Ht 170.2 cm; Wt 92.5 kg
[2019-02-26] VITALS (11 sets, daily range): BP systolic 98–139; BP diastolic 51–68; BMI 32.0
--- NOTE | ~2019-02-26 | HEMODYNAMI ---
PATIENT:DAMIAN ALEJO MEDICAL RECORD: [id number] : 53 [id number] ADMISSION DATE: 02/26/19 Generatedon:02/27/20199:48 Patient name: DAMIAN ALEJO Patient #: [id number] SSN: [id number] : 1955 Date of study: 02/27/2019 Page: Of Hemodynamic Procedure Report Patient Data Patient Demographics Procedure consent was obtained First Name: DAMIAN Gender: Female Last Name: SAPNA : 1955 [facility] Initial: CHARLOTTE Age: 63 year(s) Patient #: [id number] Race: SSN: [id number] Additional ID: [id number] Contact details [address]: [address] [place] [address] State: [place] City: [place] Zip code: [address] Past Medical History Allergies Allergen Reaction Date Comments Reported Other allergy 09/01/2016 Stadol Other allergy 02/27/2019 BETA BLOCKERS/BUTORPHANOL TARTRATE(FROM sTADOL) Admission Admission Data Admission Date: 02/26/2019 Admission Time: 13:44 Arrival Date: 02/27/2019 Arrival Time: 0:00 Admit Source: Other Insurance Payor: Private Room #: [id number].[id number] health insurance [facility] #: [id number] Height (in.): 66.93 BSA: 2.04 (m2) Height (cm.): 170 BMI: 32.18 (kg/m2) Weight (lbs.): 205.03 Weight (kg.): 93 Lab Results Lab Result Date: 02/27/2019 Lab Result Time: 0:00 Biochemistry Name Units Result Min Max BUN mg/dl 28 --(----)-* 7 18 CK-MB ng/ml 1 --(-*--)-- 0 3.6 Creatinine mg/dl 1.6 --(----)-* 0.6 1.3 eGFR ml/min 34 *-(----)-- 90 120 NONAFRICAN Troponin l ng/ml 0.164 --(----)-* 0 0.06 CBC Name Units Result Min Max Hemoglobin g/dl 14 --(*---)-- 13.5 17.5 Procedure Procedure Types Cath Procedure Diagnostic Procedure LHC LHC w/Coronaries w/Grafts FFR/IVUS FFR Initial Sedation Charges Moderate Sedation up to 15 minutes PCI Procedure Coronary Stent Coronary Stent Initial Procedure Description Procedure Date Procedure Date: 02/27/2019 Procedure Start Time: 9:21 Procedure End Time: 9:43 Procedure Staff Name Function Rustam Sandoval MD Performing Physician Betty Gold RT Monitor Ritu Carter RT Monitor Carrington Nicole RN Nurse Armida Ceballos RT Scrub Indication Chest pain Procedure Data Cath Procedure Fluoroscopy Diagnostic fluoroscopy Total fluoroscopy Time: 3.9 time: 3.9 min min Diagnostic fluoroscopy Total fluoroscopy dose: 853 dose: 853 mGy mGy Contrast Material Contrast Material Type Amount (ml) Isovue 300 139 Entry Location Entry Primary Successful Side Size Upsize Upsize Entry Closure Succes sful Closure Location (Fr) 1 (Fr) 2 (Fr) Remarks Device Remarks Femoral Right 5 Fr 6 Fr Exoseal artery Short Estimated blood loss: 10 ml Diagnostic catheters Device Type Used For End Catheter Placement MULTIPACK Pigtail 5 Fr LV Angiography catheter MULTIPACK JL 4.0 5Fr Left Coronary catheter Angiography MULTIPACK 3DRC 5Fr Right Coronary catheter Angiography DIAGNOSTIC AR2 MOD 5 Fr Procedure catheter ([id number]) Procedure Complications No complications Procedure Medications Medication Administration Route Dosage 0.9% NaCl I.V. 100 ml/hr Oxygen etCO2 Nasal cannula 2 l/min Heparin Flush Bag added to field 2 bags (1000units/500ml NS) Lidocaine 2% added to field 20 Versed I.V. 2 mg Fentanyl I.V. 100 mcg Heparin Bolus I.V. 3000 units Plavix P.O. 75 mg Aspirin P.O. 325 mg Hemodynamics Rest BSA: 2.04 (m2) HGB: 14 (g/dl) O2 Consumption: Estimated: 214.94 (ml/min) O2 Cons umption indexed: Estimated:105.36 (ml/min/m) Heart Rate: 101 (bpm) Snapshots Pre Cath Intra NCS Post Cath Vital Signs Time Heart Resp SPO2 etCO2 NIBP Rhythm Pain Sedation Rate (ipm) (%) (mmHg) (mmHg) Status Level (bpm) 9:04:00 98 15 96 27 119/72(90) NSR 0 (11) 10(A) , No pain 9:08:10 93 15 94 42.1 112/64(88) NSR 0 (11) 10(A) , No pain 9:12:22 97 14 92 7.5 113/68(88) NSR 0 (11) 10(A) , No pain 9:16:38 97 13 92 36 109/70(95) NSR 0 (11) 10(A) , No pain 9:20:46 85 13 95 36.8 113/70(96) NSR 0 (11) 9(A) , No pain 9:24:56 96 14 99 39.8 110/66(80) NSR 0 (11) 9(A) , No pain 9:29:08 97 15 100 0 122/74(88) NSR 0 (11) 9(A) , No pain 9:33:26 96 17 100 32.3 119/71(87) NSR 0 (11) 9(A) , No pain 9:37:40 100 15 100 35.3 115/74(90) NSR 0 (11) 10(A) , No pain 9:41:48 96 16 100 34.6 104/69(88) NSR 0 (11) 10(A) , No pain Medications Time Medication Route Dose Verified Delivered Reason Notes Effectiveness by by 9:02:41 0.9% NaCl I.V. 100 Carrington Carrington Per physician ml/hr Corey Nicole RN RN 9:03:28 Oxygen etCO2 2 Carrington Carrington for low 02 sats Nasal l/min Corey Nicole cannula RN RN 9:03:39 Heparin Flush added 2 Carrington Carrington used for Bag to bags Corey Nicole procedure (1000units/500ml field WESTFALL RN NS) 9:03:51 Lidocaine 2% added 20ml Carrington Carrington for local to vial Lorigan Corey anesthetic field WESTFALL RN 9:19:12 Versed I.V. 2 mg Carrington Carrington for sedation Corey Nicole RN RN 9:19:23 Fentanyl I.V. 100 Carrington Carrington for sedation mcg Lorigan Lorigan RN RN 9:34:37 Heparin Bolus I.V. 3,000 Carringtontiffani Shultz for units Corey Prettyangel anticoagulation RN RN 9:39:32 Plavix P.O. 75 mg Carrington Shultz for Corey Nicole antiplatelet RN RN therapy 9:43:49 Aspirin P.O. 325 Carringtontiffani Shultz for mg Corey Corey antiplatelet RN RN therapy Procedure Log Time Note 8:45:04 Informed consent obtained and on chart 8:46:05 Indication : Chest pain 8:48:29 Lab Result : BUN 28 mg/dl 8:48:29 Lab Result : Hemoglobin 14 g/dl 8:48:29 Lab Result : eGFR NONAFRICAN 34 ml/min 8:48:29 Lab Result : Troponin l 0.164 ng/ml 8:48:29 Lab Result : Creatinine 1.6 mg/dl 8:48:29 Lab Result : CK-MB 1 ng/ml 8:48:39 Procedure Status Urgent Heart Cath (IP). 8:48:44 Carrington Nicole RN sent for patient. Start room use. 8:48:47 Time tracking: Regular hours (M-F 7:00 - 5:00) 8:48:54 Plan of Care:Hemodynamics will remain stable., Cardiac rhythm will remain stable., Comfort level will be maintained., Respiratory function will remain adequate., Patient/ family verbilizes understanding of procedure., Procedure tolerated without complication., Recovers from procedure without complications.. 8:51:46 Patient received from CVICU to CCL 1 Alert and oriented. Tansferred to table in Supine position. 8:54:29 Warm blankets applied, and juan manuel hugger turned on for patient comfort. 8:54:29 Correct patient and procedure confirmed by team. 8:54:30 ECG and BP/O2 sat monitors applied to patient. 9:02:41 0.9% NaCl 100 ml/hr I.V. was administered by Carrington Nicole RN; Per physician; Verbal order read back and verified. 9:02:52 Vital chart was started 9:02:53 Baseline sample Acquired. 9:03:07 Rhythm: sinus tachycardia 9:03:10 Full Disclosure recording started 9:03:11 9:03:18 H&P Date Dictated: 02/27/2019 Within 30 days and on chart.. 9:03:21 Pre-procedure instructions explained to patient. 9:03:22 Pre-op teaching completed and patient verbalized understanding. 9:03:28 Oxygen 2 l/min etCO2 Nasal cannula was administered by Carrington Nicole RN; for low 02 sats; Verbal order read back and verified. 9:03:30 Family in waiting room. 9:03:32 Patient NPO since Midnight. 9:03:39 Heparin Flush Bag (1000units/500ml NS) 2 bags added to field was administered by Carrington Nicole RN; used for procedure; Verbal order read back and verified. 9:03:51 Lidocaine 2% 20ml vial added to field was administered by Carrington Nicole RN; for local anesthetic; Verbal order read back and verified. 9:04:15 Patient allergic to Other allergyBETA BLOCKERS/BUTORPHANOL TARTRATE(FROM sTADOL) 9:04:21 Is the patient allergic to Iodine/contrast media? No. 9:04:23 Was the patient premedicated? Yes 9:04:25 Is patient on blood thinner?Yes 9:04:29 ACC The patient was administered the following blood thiners within the last 24 hours: ACCPlavix 9:04:32 Patient diabetic? Yes. 9:04:34 If diabetic: On Metformin? No 9:04:37 Patient not . Patient is over age 55. 9:04:39 ----Pre-sedation anethsthesia assessment.---- 9:04:44 Previous problem with sedation/anesthesia? No ? 9:04:48 Snore? Yes 9:04:50 Sleep apnea? Yes 9:04:53 Deviated septum? No 9:04:55 Opens mouth fully? Yes 9:04:56 Sticks out tongue? Yes 9:05:11 Airway obstruction? Yes SLEEPS WITH CPAP AT HOME 9:05:15 Dentures? No ? 9:05:24 Pre procedure: right dorsailis pedis pulse Doppler 9:05:29 Patient pain scale 0/10 ?. 9:05:44 IV patent on arrival in right hand with 0.9% NaCl at [facility]. 9:05:51 Lab results completed and on chart. 9:06:01 Risk of Mortality: 0.1 9:06:07 Risk of blood transfusion: 0.7 9:06:12 Risk of WALLY: 2.5 9:06:18 Right groin area was prepped with chlora-prep and draped in sterile fashion 9:06:20 Alarms reviewed by RMery N. 9:06:21 Sharps counted by scrub and verified by R.N. 9:06:23 Physician arrived 9:06:24 --------ALL STOP TIME OUT------ 9:06:25 Final Timeout: patient, procedure, and site verified with staff and physician. All members of the team are in agreement. 9:06:32 Right groin site verified by team. 9:06:38 Fire Safety Assessment: A--An alcohol-based skin anteseptic being used preoperatively., C--Open oxygen or nitrous oxide is being used., D--An ESU, laser, or fiber-optic light is being used. 9:06:49 Physical assessment completed. ASA score P 3 - A patient with severe systemic disease as per Rustam Sandoval MD. 9:07:06 3b) 30-44 Moderately reduced kidney function. 9:07:14 Maximum allowable contrast dose (3.7 X eGFR X 0.75)94 ml. 9:07:20 Sedation plan: IV Moderate Sedation Medication:Versed, Fentanyl 9:07:25 Use device set Femoral Dx 9:07:27 ACIST Syringe (92989) opened to sterile field. 9:07:28 Bag Decanter () opened to sterile field. 9:07:29 Medline Cath Pack ([id number]) opened to sterile field. 9:07:30 ACIST Hand Control (94172) opened to sterile field. 9:07:32 ACIST Manifold (60252) opened to sterile field. 9:07:34 DIAGNOSTIC Multipack 5Fr catheter set ([id number]) opened to sterile field. 9:07:34 Tegaderm 4 x 4 (1626W) opened to sterile field. 9:07:37 SHEATH 5FR Davy (VDH831) opened to sterile field. 9:07:38 HONGALD Guide Wire (081-504) opened to sterile field. 9:11:01 Arrival Date: 02/27/2019 12:00:00 AM 9:11:05 Insurance Payor : Private health insurance 9:11:08 Admit Source: Other 9:11:40 Patient Height : 66.93 inches 9:11:45 Patient Weight : 205.03 lbs 9:14:48 Zero performed for pressure channel P1 9:17:49 Stress Test: no; N/A ? 9:19:12 Versed 2 mg I.V. was administered by Carrington Nicole RN; for sedation; Verbal order read back and verified. 9:19:23 Fentanyl 100 mcg I.V. was administered by Carrington Nicole RN; for sedation; Verbal order read back and verified. 9:21:39 Procedure started. 9:21:45 Local anesthetic to right femoral artery with Lidocaine 2% by Rustam Sandoval MD.INITIAL ACCESS ONLY 9:22:30 A 5 Fr sheath was inserted into the Right Femoral artery 9:22:52 A MULTIPACK Pigtail 5 Fr catheter was advanced over the wire and used for LV Angiography. 9:22:55 LV gram done using MENEZES 9:23:10 EF : 40 % 9:23:16 Injector settings: Ml/sec: 10, Volume: 20, 9:23:18 Catheter removed. 9:23:31 A MULTIPACK JL 4.0 5Fr catheter was advanced over the wire and used for Left Coronary Angiography. 9:23:57 LCA angiography performed. 9:24:10 Injector settings: Ml/sec: 3, Volume: 6, 9:24:53 Catheter removed. 9:25:08 A MULTIPACK 3DRC 5Fr catheter was advanced over the wire and used for Right Coronary Angiography. 9:25:54 PAINTER to LAD angiography performed. 9:26:04 Injector settings: Ml/sec: 3, Volume: 6, 9:26:14 RCA angiography performed. 9:26:30 Catheter removed. 9:26:35 ACCDominant side:Co-Dominant 9:26:53 A DIAGNOSTIC AR2 MOD 5 Fr catheter ([id number]) was advanced over the wire and used for Procedure. 9:27:51 SVG to RCA occluded. 9:27:57 Catheter removed. 9:28:44 INFLATOR Merit BasixCompak (RU7969) opened to sterile field. 9:28:46 SHEATH 6FR Davy (HKU874) opened to sterile field. 9:28:54 GUIDE 6FR AR 2.0 catheter ([id number]) opened to sterile field. 9:28:55 [place] Verrata Plus pressure wire (65508W) opened to sterile field. 9:29:15 Sheath upsized to a 6 Fr Short. 9:29:30 6 Fr AR2 guide catheter was inserted over the wire 9:30:13 FFR/IFR wire advanced. 9:32:47 Wire advanced across lesion. 9:33:06 mRCA lesion measured at 0.77 with IFR 9:33:27 Pre PCI Site: [place] mRCA has 77% stenosis. 9:34:37 Heparin Bolus 3,000 units I.V. was administered by Carrington Nicole RN; for anticoagulation; Verbal order read back and verified. 9:34:46 Place stent Inflation Number: 1 A MARTIN RX 3.5 x 18 stent ([id number]) was prepped and advanced across the Mid RCA . The stent was deployed at 21 ESCOBAR for 0:10 (min:sec) . 9:35:09 Stent catheter was removed intact over wire. 9:35:47 mRCA lesion measured at 0.99 with IFR POST STENT. 9:36:20 Wire removed. 9:36:21 Guide catheter removed. 9:36:52 EXOSEAL 6Fr (EX600) opened to sterile field. 9:37:15 Sheath removed intact; hemostasis achieved with Exoseal to the Right Femoral artery. 9:37:18 Procedure ended.(Physican Out) 9:37:35 Contrast amount:Isovue 300 139ml. 9:37:52 Fluoroscopy time 03.90 minutes. 9:38:09 Fluoroscopy dose: 853 mGy 9:38:09 Flurop Dose total: 853 9:38:16 Dose Area Product 09826 mGy/cm. 9:38:19 Maximum allowable dose exceeded? Yes. 9:38:21 Sharps counted by scrub and verified by R.N. 9:38:26 Insertion/operative site no bleeding no hematoma. 9:38:31 Post-op/insertion site Right Femoral artery dressed using a 4 x 4 and Tegaderm. 9:38:37 Post right femoral artery:stable 9:38:40 Post Procedure Pulses reassessed and unchanged 9:38:51 Post-procedure physical assessment completed. ASA score P 3 - A patient with severe systemic disease as per Rustam Sandoval MD. 9:39:01 Post procedure rhythm: sinus rhythm 9:39:04 Estimated blood loss: 10 ml 9:39:08 Post procedure instruction explained to patient.Patient verbalizes understanding. 9:39:09 Patient needs reinforcement of post procedure teaching. 9:39:32 Plavix 75 mg P.O. was administered by Carrington Nicole RN; for antiplatelet therapy; Verbal order read back and verified. 9:39:47 ACT drawn and resulted at 192 seconds. (normal therapeutic range 180-240 seconds). 9:41:20 Procedure type changed to Cath procedure, Diagnostic procedure, LHC, LHC w/Coronaries w/Grafts, FFR/IVUS, FFR Initial, Sedation Charges, Moderate Sedation up to 15 minutes, PCI procedure, Coronary Stent, Coronary Stent Initial 9:41:23 Procedure and supply charges have been captured, reviewed, submitted and are correct. 9:42:27 Procedure Complication : No complications 9:42:32 Vital chart was stopped 9:42:35 [facility] Findings: MVD- PCI performed (see procedure note) 9:42:41 Operative report dictated upon procedure completion. 9:42:43 See physician's report for complete and final results. 9:42:48 Report given to CVICU. 9:43:16 Patient transfered to CVICU with Bed. 9:43:32 Procedure ended. 9:43:32 Full Disclosure recording stopped 9:43:45 ACC-PCI Only Patient was given prescriptions, or instructed by Rustam Sandoval MD to start/continue the following medications upon discharge: Aspirin, Plavix 9:43:49 Aspirin 325 mg P.O. was administered by Carrington Nicole RN; for antiplatelet therapy; Verbal order read back and verified. 9:43:50 End room use (Document Last) Intervention Summary Intervention Notes Time ActionType Lesion and Equipment Used Action# Pressure Duration Attributes 9:34:46 Place stent Mid RCA MARTIN RX 3.5 x 1 21 00:10 18 stent ([id number]) Device Usage Item Name Manufacture Quantity Catalog Hospital Part Current Minimal Lot# / Number Charge Number Stock Stock Serial# Code ACIST Syringe Acist 1 68906 204287 674745 567369 20 (83701) Medical Systems Inc Bag Decanter Microtek 1 273382 01527 780705 5 (2001S) Medical Inc. Medline Cath Medline 1 [id number] 024260 53681 223546 5 Pack ([id number]) ACIST Hand Acist 1 34480 437616 975197 499404 5 Control Medical (65086) Systems Inc ACIST Manifold Acist 1 56708 165263 030332 588049 5 (00771) Medical Systems Inc DIAGNOSTIC Cardinal 1 LQ8259 201132 22750 826870 30 Multipack 5Fr Health catheter set (AM5192) Tegaderm 4 x 4 3M 1 1626W 891577 492253 735347 5 (1626W) SHEATH 5FR Terumo 1 LQF521 531408 983690 935721 5 Davy (USY885) EMERALD Guide Cardinal 1 502-455 049431 194772 061109 5 Wire (502-455) Health MULTIPACK Cardinal 1 499284 5 Pigtail 5 Fr Health catheter MULTIPACK JL Cardinal 1 581526 5 4.0 5Fr Health catheter MULTIPACK 3DRC Cardinal 1 653184 5 5Fr catheter Health DIAGNOSTIC AR2 Cardinal 1 [id number] 771802 259234 567017 20 MOD 5 Fr Health catheter (255791B) INFLATOR Merit Merit 1 VL1518 610684 705421 207898 15 BasartaculousTooele Valley HospitalTalari Networks Medical (AV8479) SHEATH 6FR Terumo 1 HIE265 748988 569364 568846 40 Davy (DEJ474) GUIDE 6FR AR Medtronic 1 [id number] 682371 97911 019120 1 2.0 catheter ([id number]) Stockton Stockton 1 74241Q 838696 891760305 958403 5 Verrata Plus pressure wire (22025Q) MARTIN RX 3.5 x Medtronic 1 [id number] 468499 3574616 220439 5 [id number] 18 stent ([id number]) EXOSEAL 6Fr Cardinal 1 EX600 105734 911518 910931 10 (EX600) Health Signature Audit [place] Stage Time Signature Unsigned Intra-Procedure 02/27/2019 Ritu 9:47:30 AM Emma RT(R) (CV) Intra-Procedure 02/27/2019 Carrington 9:48:09 AM Corey WESTFALL Intra-Procedure 02/27/2019 Rustam Sandoval 9:48:36 AM [place] [address] [facility] [place] [address]
[2019-02-26 13:48] LABS: BASOPHILS 0 % (0-2); EOSINOPHILS 0.1 % (0-7); HEMATOCRIT 39.9 % (36.0-48.0); IMMATURE GRANULOCYTES 0.1 % (0-5); LYMPHOCYTES 18.3 % (15-50); MCHC 35.1 g/dL (31.0-37.0); MCV 82.6 fL (80.0-100.0); MEAN PLATELET VOLUME 9.5 fL (7.4-10.4); MONOCYTES 10.7 % (2-11); NEUTROPHILS 70.8 % (40-80); RBC 4.83 10x6/uL (4.00-5.40); RDW 12.7 % (11.5-14.5); WBC 6.8 10x3/uL (4.8-10.8)
[2019-02-26 13:54] LABS: PLATELET COUNT 141 10x3/uL (130-400)
[2019-02-26 13:55] LABS: CALC OSMOLALITY 284 mosm/kg (275-300); CALCIUM 9.3 mg/dL (8.5-10.1); CARBON DIOXIDE 29.9 mmol/L (21.0-32.0); CHLORIDE - SERUM 97 mmol/L (98-107); CREATININE - SERUM 1.6 mg/dL (0.6-1.3); GLUCOSE 154 mg/dL (74-106); POTASSIUM - SERUM 3.6 mmol/L (3.5-5.1); SODIUM 138 mmol/L (136-145); UREA NITROGEN 28 mg/dL (7-18); eGFR NON AFRICAN AMERICAN 34 mL/min (90-120)
[2019-02-26 13:56] LABS: APTT 27.4 SECONDS (22.8-39.4); INR 1.05 (0.85-1.17); PROTIME 13.2 SECONDS (11.6-15.0)
[2019-02-26 14:16] LABS: ALBUMIN 3.9 g/dL (3.4-5.0); ALKALINE PHOSPHATASE 90 U/L (46-116); ALT (SGPT) 78 U/L (10-68); BILIRUBIN - TOTAL 0.97 mg/dL (0.2-1.3); CKMB 0.6 U/L (0.0-3.6); CREATINE KINASE 33 UL (21-215); MAGNESIUM - SERUM 1.9 mg/dL (1.8-2.4); PROTEIN - SERUM 7.3 g/dL (6.4-8.2)
[2019-02-26 14:22] LABS: TROPONIN-I 0.151 ng/mL (0.000-0.060)
[2019-02-26 14:49] LABS: CREATINE KINASE 36 UL (21-215)
[2019-02-26 14:50] LABS: TROPONIN-I 0.164 ng/mL (0.000-0.060)
--- NOTE | 2019-02-26 15:00 | NUR ---
ARRIVED TO UNIT AROUND 1445 VIA STRETCHER. ON ROOM AIR. 20G PIV ON R-AC, R-HAND AND LEFT HAND. NS INFUSING AT 125ML/HR AND HEPARIN INFUSING AT 800UNITS/HR. PT VOIDED AT THIS TIME. CONCENTRATED YELLOW URINE NOTED. CONNECTED TO LADIES SUIT OPERATOR. NO FEVER NOTED. VSS. CALL LIGHT IN REACH. WILL CONTINUE TO MONITOR.
--- NOTE | 2019-02-26 15:30 | NUR ---
DR. VEGA NOTIFIE OF PATIENT ARRIVAL.
--- NOTE | 2019-02-26 15:59 | MORECARE ---
CASE MANAGEMENT DISCHARGE SUMMARY PATIENT: DAMIAN ALEJO ANN UNIT: [id number] ADM DATE: 02/26/19 AGE: 63 : 53 SEX: F ROOM/BED: [facility] AUTHOR: KAUR JAUREGUI PHYSICIAN: REFERRING PHYSICIAN: JACQUELINE VEGA MD DATE OF SERVICE: 02/26/19 Discharge Plan Patient Name: DAMIAN ALEJO [facility] [facility] 1955 Planned Disposition: Home Anticipated Discharge Date: 02/28/19 Discharge Date: Expected LOS: 2 Initial Reviewer: [email or web address] Initial Review Date: 02/26/2019 Generated: 02/26/19 4:59 pm DCPIA - Discharge Planning Initial Assessment Updated by [email or web address]: Megan Pate on 02/26/19 3:58 pm * Is the patient Alert and Oriented? Yes * How many steps to enter\exit or inside your home? * PCP Dr. London [place] * Pharmacy [facility] - [place] * Preadmission Environment Home with Family * ADLs Independent * Equipment Cane CPAP Glucometer * List name and contact numbers for known caregivers / representatives who currently or will assist patient after discharge: Keeley Alejo - daughter - [phone] * Verbal permission to speak to the caregivers and representatives has been obtained from the patient. Yes * Community resources currently utilized None * Additional services required to return to the preadmission environment? No * Can the patient safely return to the preadmission environment? Yes * Has this patient been hospitalized within the prior 30 days at any hospital? No Patient Name: DAMIAN ALEJO Page [id number] at 1559 All edits/amendments must be made on the electronic document DICTATION DATE: 02/26/191558 SPOOL TENDER: AMAURI 02/26/191558 RPT#: [id number] DC DATE: STATUS: ADM IN [facility] [address] [place] [address] END OF REPORT
[2019-02-26] MEDS ORDERED: LASIX80 MG PO (16:02)
[2019-02-26] MEDS ORDERED: ATIVAN0.5 MG PO (16:04)
[2019-02-26] MEDS ORDERED: NITROSTAT0.4 MG SL (16:05)
[2019-02-26] MEDS ORDERED: PHENERGAN25 M1 PO (16:06)
[2019-02-26] MEDS ORDERED: ALDACTONE50 MG PO (16:07)
--- NOTE | 2019-02-26 16:08 | MORECARE ---
CASE MANAGEMENT DISCHARGE SUMMARY PATIENT: DAMIAN ALEJO ANN UNIT: [id number] ADM DATE: 02/26/19 AGE: 63 : 53 SEX: F ROOM/BED: D.08 AUTHOR: JUVENTINO,DOC PHYSICIAN: REFERRING PHYSICIAN: JACQUELINE VEGA MD DATE OF SERVICE: 02/26/19 Discharge Plan Patient Name: DAMIAN ALEJO Facility: [facility]:[place] : 1955 Planned Disposition: Home Anticipated Discharge Date: 02/28/19 Discharge Date: Expected LOS: 2 Initial Reviewer: [email or web address] Initial Review Date: 02/26/2019 Generated: 02/26/19 5:07 pm DCP- Discharge Planning Updated by [email or web address]: Megan Pate on 02/26/19 3:[address] DC PLAN: Return home with her children. ANTICIPATED DC NEEDS: Transportation Service to transport home. CM met with patient to complete initial dc planning assessment. CM educated patient on the CM role and verbal consent given by patient to complete assessment. CM verified patient's address, phone number, and emergency contact phone numbers. Patient lives at home with her son and daughter. Patient's son has Asperger's and her daughter has psychiatric problems. At discharge patient plans to return home and feels this is a safe discharge. CM discussed availability of home health, rehab services, and medical equipment. Patient denied known discharge needs at this time. Transportation provider at discharge will be a transportation company out of [place] that charges [address] She is unable to remember the name of the company but stated she will call her daughter to get the number. CM will continue to follow and will assist as needed with dc plans/needs. Megan Pate RN, [facility] DCPIA - Discharge Planning Initial Assessment Updated by [email or web address]: Megan Pate on 02/26/19 3:58 pm * Is the patient Alert and Oriented? Yes * How many steps to enter\exit or inside your home? * PCP Dr. London [facility] * Pharmacy [facility] - [place] * Preadmission Environment Home with Family * ADLs Independent * Equipment Cane CPAP Glucometer * List name and contact numbers for known caregivers / representatives who currently or will assist patient after discharge: Keeley Alejo - daughter - [phone] * Verbal permission to speak to the caregivers and representatives has been obtained from the patient. Yes * Community resources currently utilized None * Additional services required to return to the preadmission environment? No * Can the patient safely return to the preadmission environment? Yes * Has this patient been hospitalized within the prior 30 days at any hospital? No Last DP export: 02/26/19 2:59 Patient Name: DAMIAN ALEJO Page [phone] at 1608 All edits/amendments must be made on the electronic document DICTATION DATE: 02/26/191606 A CLASS LINEMAN: AMAURI 02/26/191606 RPT#: [id number] DC DATE: STATUS: ADM IN [facility] [address] [place] [address] END OF REPORT
--- NOTE | 2019-02-26 17:00 | NUR ---
MEAL TRAY DELIVERED AND SET UP. DENIES CHEST PAIN AT THIS TIME. WILL CONTINUE TO MONITOR.
--- NOTE | 2019-02-26 19:15 | NUR ---
PT RECEIVED IN BED WITH EYES OPEN. NO COMPLAINTS OF PAIN, RECEIVING HEPARINE AND NS TO RIGHT HAND IV. PT WITH NO NEEDS MADE KNOWN. CALL LIGHT IN REACH. WILL CONTINUE TO OBSERVE.
--- NOTE | 2019-02-26 20:10 | NUR ---
COMMUNICATION EQUIPMENT REPAIRER CULINARY WORKER CALLED TO CLEARIFIY HEPARINE ORDERS, ORDERS WERE SET RATE, RECEIVED ORDERS TO FOLLOW PROTOCOLS. ORDERS PLACED INTO [facility]. WILL CONTINUE TO OBSERVE.
[2019-02-26 20:21] LABS: CKMB 0.8 U/L (0.0-3.6); CREATINE KINASE 54 UL (21-215)
[2019-02-26 20:28] LABS: TROPONIN-I 0.263 ng/mL (0.000-0.060)
--- NOTE | 2019-02-26 20:50 | NUR ---
ELECTRIC MOTOR REPAIRER PHOTO SPECIALIST PAGED DUE TO PT COMPLAINTS OF CHEST PAIN. PT HAS BEEN WITHOUT CHEST PAIN SINCE ARRIVAL TO HOSPITAL FROM [place]. REPORTED TO PHYSICIAN AND RECIEVED ORDERS FOR NITRO PATCH 0.2MG NOW. PATCH PLACED AND PT STATES PAIN 7/10 AT TIME OF PLACEMENT OF PATCH. AT 2044 HR DECREASES AND PT STATES SHE IS STARTING TO HAVE RELIEF. PT WITHOUT S/S OF DISTRESS. ASSISTED TO BATHROOM. NO OTHER NEEDS MADE KNOWN. CALL LIGHT IN REACH. WILL CONTINUE TO OBSERVE.
[2019-02-26 21:07] LABS: INR 1.06 (0.85-1.17); PROTIME 13.3 SECONDS (11.6-15.0)
[2019-02-26 21:08] LABS: HEMATOCRIT 39.9 % (36.0-48.0); HEMOGLOBIN 13.7 g/dL (12-16); MCH 28.8 pg (26.0-34.0); MCHC 34.3 g/dL (31.0-37.0); MCV 83.8 fL (80.0-100.0); MEAN PLATELET VOLUME 9.4 fL (7.4-10.4); RBC 4.76 10x6/uL (4.00-5.40); RDW 12.8 % (11.5-14.5)
[2019-02-26 21:09] LABS: APTT 34.4 SECONDS (22.8-39.4)
--- NOTE | 2019-02-26 23:23 | NUR ---
PT RESTING WITH EYES CLOSED AND CHEST RISING. EASILY AWOKEN TO ENTRY. NO NEEDS OR CONCERNS NOTED. CALL LIGHT IN REACH. WILL CONTINUE TO OBSERVE.
[2019-02-27] VITALS (20 sets, daily range): BP systolic 74–131; BP diastolic 51–70; Ht 170.2 cm; Wt 92.5 kg
--- NOTE | 2019-02-27 00:31 | NUR ---
PT USES CALL LIGHT TO COMPLAIN OF CHEST PAIN. MECHANICAL SERVICE REPRESENTATIVE CONFLICTS ANALYST PAGED AND RETURNED CALL, REPORT GIVEN AND RECEIVED ORDERS FOR MORPHINE 2-4MG Q 2-4 HOURS FOR PAIN. 2MG GIVEN PT TOLERATED WELL. CALL LIGHT IN REACH. WILL CONTINUE TO OBSERVE.
--- NOTE | 2019-02-27 02:34 | NUR ---
PT COMPLAINTS OF CHEST PAIN, PRN MORPHINE GIVEN PER JUN. PT TOLERATING WELL. WILL CONTINUE TO OBSERVE.
[2019-02-27 02:42] LABS: CKMB 0.5 U/L (0.0-3.6); CREATINE KINASE 40 UL (21-215)
[2019-02-27 02:43] LABS: TROPONIN-I 0.167 ng/mL (0.000-0.060)
[2019-02-27 04:47] LABS: BASOPHILS 0.6 % (0-2); EOSINOPHILS 0.6 % (0-7); HEMATOCRIT 36.7 % (36.0-48.0); HEMOGLOBIN 12.5 g/dL (12-16); IMMATURE GRANULOCYTES 0.2 % (0-5); LYMPHOCYTES 18.4 % (15-50); MCH 28.7 pg (26.0-34.0); MCHC 34.1 g/dL (31.0-37.0); MCV 84.4 fL (80.0-100.0); MEAN PLATELET VOLUME 9.8 fL (7.4-10.4); MONOCYTES 10.2 % (2-11); PLATELET COUNT 146 10x3/uL (130-400); RBC 4.35 10x6/uL (4.00-5.40); RDW 12.8 % (11.5-14.5)
[2019-02-27 05:05] LABS: ALBUMIN 3.4 g/dL (3.4-5.0); ANION GAP 11.6 mmol/L (8-16); BILIRUBIN - TOTAL 0.87 mg/dL (0.2-1.3); CALCIUM 8.4 mg/dL (8.5-10.1); CARBON DIOXIDE 29.7 mmol/L (21.0-32.0); POTASSIUM - SERUM 3.3 mmol/L (3.5-5.1); PROTEIN - SERUM 6.7 g/dL (6.4-8.2)
--- NOTE | 2019-02-27 06:36 | NUR ---
PT CLIPPED AND PREPPED, CHG BATH GIVEN WITH COMPLETE LINEN CHANGE. WILL CONTINUE TO OBSERVE. CALL LIGHT IN REACH. NO NEEDS OR COMPLAINTS MADE KNOWN. PT NPO HOLDING INSULIN AT THIS TIME. WILL REPORT TO ONCOMING STAFF.
--- NOTE | 2019-02-27 07:15 | NUR ---
SHIFT REPORT RECEIVED. ALERT AND ORIENTED. DENIES CHEST PAIN AT THIS TIME. ON ROOM AIR WITH O2 SAT 94%. 20G PIV ON R-HAND WITH NS AT 125ML/HR AND HEPARIN AT 1100UNITS/HR. 20G PIV SALINE LOC ON R-AC AND LEFT HAND. CALL LIGHT IN REACH. SHIFT ASSESSMENT CHARTED IN FLOWSHEET. NO FURTHER NEEDS AT THIS TIME. WILL CONTINUE TO MONITOR.
--- NOTE | 2019-02-27 08:09 | NUR ---
PT REPORTED CHEST PAIN 02/08. MORPHINE 4MG IV GIVEN FOR PAIN. NITRO PATCH APPLIED TO CHEST PER ORDERS. DR. VEGA NOTIFIED.
--- NOTE | 2019-02-27 08:21 | NUR ---
PREOP MEDS GIVEN PER ORDERS.
--- NOTE | 2019-02-27 08:51 | NUR ---
TO MEDICAL SCRIBE VIA BED WITH PERSONNEL X2, AAO
--- NOTE | 2019-02-27 10:06 | NUR ---
ARRIVED TO UNIT [facility] 0958 VIA BED. AWAKENS TO VOICE. RIGHT GROIN DRESSING C/D/I. NO HEMATOMA OR BLEEDING NOTED. PERIPHERAL PULSES PALPABLE. NS INFUSING AT 100ML/HR ON R-AC. R-HAND AND LEFT HAND PIV S.L. ON 3L OF 02 VIA NC. 98% O2 SAT. BP 116/60, HR 89 NORMAL SINUS. WILL CONTINUE TO MONITOR.
--- NOTE | 2019-02-27 11:15 | NUR ---
RESTING ON HER BACK. NO BLEEDING OR HEMATOMA NOTED ON RIGHT GROIN. PERIPHERAL PULSES PALPABLE. NO FEVER NOTED AT THIS TIME. WILL CONTINUE TO MONITOR.
--- NOTE | 2019-02-27 11:41 | HP ---
PATIENT: DAMIAN ALEJO MEDICAL RECORD: [id number] ACCOUNT: [id number] LOCATION:BETINA Hwoard.CV08 : 53 ADMISSION DATE: 02/26/19 PCP: JUDAH VELÁZQUEZ MD HISTORY AND PHYSICAL EXAMINATION DIAGNOSES: 1. Acute myocardial infarction. 2. Coronary artery disease. 3. Previous bypass surgery. 4. Colon cancer with recent hemicolectomy. 5. Hyperlipidemia. HISTORY OF PRESENT ILLNESS: Mrs. Alejo is a patient with known history of coronary artery disease, status post coronary artery bypass graft surgery in 2017 including a PAINTER to the LAD and a vein graft to the RCA. She awoke last night after having done well from a cardiac standpoint since with severe chest discomfort. She presented to [facility], was felt to have ST elevation inferiorly, received thrombolytic therapy. Her pain and EKG changes resolved. She remains pain free at this time. She is on a heparin drip. She has been loaded with Plavix and aspirin. She has a recent history of colon cancer with a hemicolectomy and followed with oral chemotherapy. We have spoken with Dr. Blakely. Her oral chemotherapy interacts with Coumadin alone. No other anticoagulation. She has not had any further blood either dark stool or bright red blood per rectum over the past few weeks since the hemicolectomy. PHYSICAL EXAMINATION: CONSTITUTIONAL/GENERAL APPEARANCE: Well nourished, well developed, appears stated age. EYES: Lids and conjunctivae noninjected. No discharge. No pallor. ENT: Lips within normal limit. No cyanosis. No pallor. NECK: Carotid arteries, bilateral normal upstroke. No bruits. No thrills. No jugular venous pressure or distention. CERVICAL LYMPH NODES: Nontender. Nonenlarged. THYROID: Not enlarged. No nodules. CARDIOVASCULAR: Precordial exam, nondisplaced. No heaves or pericardial thrills. Rate and rhythm, regular. Heart sounds, normal S1, normal S2. No S3, no gallop, no rub. Systolic murmur, not heard. Diastolic murmur, not heard. RESPIRATORY: Respiratory effort, unlabored. Normal curvature. No thoracic deformity. No chest wall tenderness. Percussion, resonant. Auscultation, clear. No wheezes, no rales, no rhonchi. ABDOMEN: Soft, nondistended, nontender. No abdominal pain, no vomiting and normal appetite. MUSCULOSKELETAL: No joint tenderness, normal gait, normal tone. SKIN: Warm and dry. OVERALL IMPRESSION: Acute myocardial infarction, most likely she has hemodynamically significant disease in the vein graft to the RCA. She has responded to thrombolytic therapy. She remains pain free at this time. We will proceed with coronary angiography in the a.m. Further care depends upon the findings of the angiography. She has been intolerant to beta-blockers in the past with severe bradycardia, hence no beta blockade will be undertaken. We will continue her Pravachol. Heart rates in the 50s and 60s, now sinus and her systolic blood pressures in the 100-110 range. TRANSINT:[id number] Voice Confirmation ID: [id number] DOCUMENT ID: [id number] HISTORY AND PHYSICAL [id number] DAMIAN ALEJO JEFFREY MD at 1141 CC: [id number] DICTATION DATE: 02/26/19 165 MANAGER ADMINISTRATIVE: 02/26/19 1849 ADM IN [facility] [address] [place] [address]
--- NOTE | 2019-02-27 11:41 | OP ---
PATIENT NAME: DAMIAN ALEJO MEDICAL RECORD: [id number] :53 LOCATION:[facility] [id number] ADMISSION DATE:02/26/19 SURGEON: JACQUELINE VEGA MD DATE OF OPERATION: 02/27/2019 DATE OF SERVICE: 02/27/2019 PROCEDURES: 1. PTCA stent RCA. 2. Left heart catheterization. 3. Selective coronary angiography. 4. Left ventriculogram. 5. Vein graft angiography. 6. PAINTER angiography. 7. IFR. INDICATION: Acute myocardial infarction. DESCRIPTION OF PROCEDURE: After informed consent was obtained and after a detailed description of risks, benefits as well as alternative therapies, the patient elected to proceed with angiogram and angioplasty. The right femoral area was prepped and draped in normal sterile fashion. Right femoral artery was cannulated via modified Seldinger technique with placement of 6-Chinese sheath. All catheters exchanged through this sheath. FINDINGS: The left ventriculogram was performed in standard 30-degree MENEZES view, reveals inferoapical hypokinesis, overall ejection mildly depressed at 40%. SELECTIVE CORONARY ANGIOGRAPHY: 1. Left main is with no significant angiographic disease. 2. Left anterior descending has moderate irregularities in the mid vessel. 3. PAINTER to the distal LAD is widely patent. 4. Left circumflex has mild irregularities, but no flow-limiting stenosis. 5. The right coronary has previously placed stents with greater than 70% in-stent restenosis in the mid vessel. 6. Vein graft to the RCA is closed. 7. IFR was performed of the RCA. Preintervention IFR was 0.77. PTCA STENT OF THE RCA: The stent used was a 3.5 x 18 mm Edon taken to 21 atmospheres. Result was 0% residual stenosis. IFR normalized to 1.0 after the intervention. OVERALL IMPRESSION: Successful percutaneous transluminal coronary angioplasty stent of the right coronary artery going from 70% initial stenosis with abnormal IFR to 0% residual stenosis with normalization of the IFR. TRANSINT:[id number] Voice Confirmation ID: [id number] DOCUMENT ID: [id number] OPERATIVE REPORT [id number] DAMIAN ALEJO JACQUELINE VEGA MD at 1149 CC: [id number] DICTATION DATE: 02/27/19 0942 [employer] FITNESS INSTRUCTOR: 02/27/19 1054 ADM IN [facility] [address] [id number]
--- NOTE | 2019-02-27 13:42 | NUR ---
RECEIVED PT FROM CVICU. PT IS AAO AND SUPINE UNTIL 1400. VSS AND WNL. NS INFUSING @100ML/HR VIA R.AC PIV. RR EVEN AND UNLABORED ON 2L 02. NO S/S OF DISTRESS NOTED. PT DENIES ANY NEEDS AT THIS TIME. WILL CTM.
--- NOTE | 2019-02-27 13:45 | NUR ---
PT TRANSFERRED TO ROOM 2123. PERSONAL BELONGINGS SENT WITH PATIENT INCLUDING GLASSES, PHONE, PURSE, SHOES, CLOTHES AND BOOKS. RECEIVING NURSE NOTIFIED OF PT ARRIVAL. CHART DELIVERED TO PROCESS OPERATOR ON ARRIVAL.
[2019-02-28] VITALS: BP 125/69
[2019-02-28 04:00] VITALS: BP 108/59
[2019-02-28] MEDS ORDERED: PLAVIX75 MG PO (08:45)
--- NOTE | 2019-02-28 08:58 | NUR ---
UPON ADMIT PATIENT HAS NOT HAD A FLU SHOT. WHEN QUESTIONED, SHE REPLIED THAT "I MIGHT BE STARTING CHEMO AGAIN". I ASKED THAT SHE GET WITH HER ONCOLOGIST AND SEE WHEN SHE CAN HAVE ONE. STATES SHE SEE'S DR FAIR NEXT WEEK.
[2019-02-28 09:00] VITALS: BP 131/869
[2019-02-28 13:01] VITALS: BP 108/59
--- NOTE | 2019-02-28 13:28 | NUR ---
IV AND TELEMETRY DCD. DC PLANS GIVEN. UNDERSTANDING VOICED. ESCORTED TO CAR BY W/C.
--- NOTE | 2019-03-01 07:16 | MORECARE ---
CASE MANAGEMENT DISCHARGE SUMMARY PATIENT: DAMIAN ALEJO ANN UNIT: [id number] ADM DATE: 02/26/19 AGE: 63 : 54 SEX: F ROOM/BED: D.5724 AUTHOR: JUVENTINO,DOC PHYSICIAN: REFERRING PHYSICIAN: JACQUELINE VEGA MD DATE OF SERVICE: 03/01/19 Discharge Plan Patient Name: DAMIAN ALEJO Facility: [facility]:[place] : 1955 Planned Disposition: Home Anticipated Discharge Date: 02/28/19 Discharge Date: 02/28/2019 Expected LOS: 2 Initial Reviewer: [email or web address] Initial Review Date: 02/26/2019 Generated: 03/01/19 8:16 am DCP- Discharge Planning Updated by [email or web address]: Megan Pate on 02/26/19 3:[address] DC PLAN: Return home with her children. ANTICIPATED DC NEEDS: Transportation Service to transport home. CM met with patient to complete initial dc planning assessment. CM educated patient on the CM role and verbal consent given by patient to complete assessment. CM verified patient's address, phone number, and emergency contact phone numbers. Patient lives at home with her son and daughter. Patient's son has Asperger's and her daughter has psychiatric problems. At discharge patient plans to return home and feels this is a safe discharge. CM discussed availability of home health, rehab services, and medical equipment. Patient denied known discharge needs at this time. Transportation provider at discharge will be a transportation company out of [place] that charges [address]. She is unable to remember the name of the company but stated she will call her daughter to get the number. CM will continue to follow and will assist as needed with dc plans/needs. Megan Pate RN, [facility] DCPIA - Discharge Planning Initial Assessment Updated by [email or web address]: Megan Pate on 02/26/19 3:58 pm * Is the patient Alert and Oriented? Yes * How many steps to enter\exit or inside your home? * PCP Dr. London [place] * Pharmacy [facility] - [place] * Preadmission Environment Home with Family * ADLs Independent * Equipment Cane CPAP Glucometer * List name and contact numbers for known caregivers / representatives who currently or will assist patient after discharge: Keeley Alejo - daughter - [phone] * Verbal permission to speak to the caregivers and representatives has been obtained from the patient. Yes * Community resources currently utilized None * Additional services required to return to the preadmission environment? No * Can the patient safely return to the preadmission environment? Yes * Has this patient been hospitalized within the prior 30 days at any hospital? No Last DP export: 02/26/19 3:07 Patient Name: DAMIAN ALEJO Page [id number] at 0716 All edits/amendments must be made on the electronic document DICTATION DATE: 03/01/19715 PRODUCTION DESIGNER: AMAURI 03/01/19715 RPT#: [id number] DC DATE:02/28/19 STATUS: DIS IN [facility] [address] [place] [address] END OF REPORT
--- NOTE | 2019-03-07 14:07 | DS ---
PATIENT:DAMIAN NORRIS :53 MEDICAL RECORD: [id number] DISCHARGE SUMMARY ADMISSION DATE: 02/26/19 DISCHARGE DATE: 02/28/19 DISCHARGE DIAGNOSES: 1. Acute inferior myocardial infarction. 2. Percutaneous transluminal coronary angioplasty stent right coronary artery this admission. 3. Coronary artery disease. 4. Status post coronary artery bypass graft surgery. 5. Hyperlipidemia. 6. Intolerance of beta blockade. HOSPITAL COURSE: Mrs. Norris presents with an acute myocardial infarction. She had a closure of the vein graft to the RCA. She underwent successful PTCA stent of the [place]isqu[place] RCA, had no further chest pain, was discharged home with the addition of aspirin, Plavix, Pravachol to her medical regimen. No beta blockade was used due to intolerance of beta-blockers in the past. We will follow up with [facility] in 1 month. TRANSINT:[id number] Voice Confirmation ID: [id number] DOCUMENT ID: [id number] JACQUELINE VEGA MD at 1407 CC: [id number] DICTATION DATE: 02/28/[address] FREIGHT CONDUCTOR: 03/01/19 0057 DIS IN 02/28/19 [facility] [address] [place] [address]
== END 2019-02-28 13:29 | disposition home or self-care (01) | DRG 247 ==
LOC: D.ER 13:17 → D.M2 13:44 → D.CVICU 13:44 → D.M2 02-27 13:36
PROVIDERS: Family Medicine; Internal Medicine Cardiovascular Disease; ADMIT Internal Medicine Interventional Cardiology; ATTEND Internal Medicine Interventional Cardiology
PROC: B2111ZZ Fluoroscopy of Multiple Coronary Arteries using Low Osmolar Contrast (ICD-10-PCS; 2019-02-27)
PROC: B2151ZZ Fluoroscopy of Left Heart using Low Osmolar Contrast (ICD-10-PCS; 2019-02-27)
PROC: B2181ZZ Fluoroscopy of Left Internal Mammary Bypass Graft using Low Osmolar Contrast (ICD-10-PCS; 2019-02-27)
PROC: 4A033BC Measurement of Arterial Pressure, Coronary, Percutaneous Approach (ICD-10-PCS; 2019-02-27)
PROC: 027034Z Dilation of Coronary Artery, One Artery with Drug-eluting Intraluminal Device, Percutaneous Approach (ICD-10-PCS; principal; 2019-02-27 09:30)
PROC: 4A023N7 Measurement of Cardiac Sampling and Pressure, Left Heart, Percutaneous Approach (ICD-10-PCS; 2019-02-27 09:30)
DX: I21.9 Acute myocardial infarction, unspecified (principal); I25.10 Atherosclerotic heart disease of native coronary artery without angina pectoris; E78.5 Hyperlipidemia, unspecified; E11.40 Type 2 diabetes mellitus with diabetic neuropathy, unspecified; Z85.038 Personal history of other malignant neoplasm of large intestine

== ENCOUNTER 2019-03-16 13:34 | Observation (INO) | payer MEDICAID ==
[~2019-03-16] VITALS: Ht 170.2 cm; Wt 95.9 kg
[~2019-03-16 13:34] MED LIST changes: +ALDACTONE50 MG PO; +ATIVAN0.5 MG PO; +LASIX80 MG PO; +NITROSTAT0.4 MG SL; +PHENERGAN25 M1 PO
[2019-03-16] MEDS ORDERED: XELODA150 MG PO (13:49)
[2019-03-16 13:54] VITALS: BP 134/74; BMI 33.1
--- NOTE | 2019-03-16 14:08 | NUR ---
NEW PATIENT ADMIT FROM [facility] VIA STRETCHER AND EMS PERSONNEL. PATIENT TRANSFERRED TO BED EASILY. PATIENT IS AWAKE, ALERT AND ORIENTED X 4. PATIENT DENIES ANY NEEDS OR PAIN. ASSESSMENRT COMPLETED. WILL CONTINUE WITH PLAN OF CARE. PATIENT ORINTED TO ROOM AND CALL LIGHT . SR UP X 2 BED IN LOW POSITION AND CALL LIGHT IN REACH.
[2019-03-16 14:37] VITALS: Ht 170.2 cm; Wt 95.9 kg
--- NOTE | 2019-03-16 16:18 | MORECARE ---
CASE MANAGEMENT DISCHARGE SUMMARY PATIENT: DAMIAN ALEJO ANN UNIT: [id number] ADM DATE: 03/16/19 AGE: 63 : 54 SEX: F ROOM/BED: D.6290 AUTHOR: KAUR JAUREGUI PHYSICIAN: REFERRING PHYSICIAN: JACQUELINE VEGA MD DATE OF SERVICE: 03/16/19 Discharge Plan Patient Name: DAMIAN ALEJO [facility] [facility] 1955 Planned Disposition: Anticipated Discharge Date: Discharge Date: Expected LOS: Initial Reviewer: [email or web address] Initial Review Date: 03/16/2019 Generated: 03/16/19 5:17 pm Patient Name: DAMIAN ALEJO Page [id number] at 1618 All edits/amendments must be made on the electronic document DICTATION DATE: 03/16/191616 ALUMNI RELATIONS COORDINATOR: AMAURI 03/16/191616 RPT#: [id number] DC DATE: STATUS: ADM IN [facility] [address] [place] [address] END OF REPORT
[2019-03-16 18:05] VITALS: BP 157/74
[2019-03-16 20:00] VITALS: BP 131/69
--- NOTE | 2019-03-16 20:17 | NUR ---
INITIAL ROUNDS COMPLETED AT 1915 HRS. PT DENIED ANY DISCOMFORT. ASSESSMENT COMPLETED AT 2004 HRS. VSS. SR PER CM HR 82. ALERT AND ORIENTED TO PERSON, PLACE AND TIME. GUSMAN. IV TO RFA SL. BRUISE NOTED TO R FA. LUNGS CTA. INFORMED NPO AFTER MIDNIGHT UNTIL SEEN BY CARDIOLOGY. PT STATED UNDERSTANDING. SR UP X2,CALL LIGHT WITHIN REACH.
--- NOTE | 2019-03-16 21:25 | NUR ---
PM MEDS GIVEN. CALL LIGHT WITHIN REACH.
[2019-03-17 00:01] VITALS: BP 143/73
--- NOTE | 2019-03-17 00:16 | NUR ---
HAS C/O CP 02/08. BP 160/84. ST PER CM HR 110. NITRO 1/150 SL GIVEN. BACLOFEN 5MG PO GIVEN.
--- NOTE | 2019-03-17 00:28 | NUR ---
PT STASED CP 8/10 AT 024 HRS. 2ND NITRO 0.4MG SL GIVEN. O2 2NC PLACED. PT STATES NOW CP 2/10 AND EASING OF. WILL CONTINUE TO MONITOR.
--- NOTE | 2019-03-17 01:36 | NUR ---
PT RESTING WTIH EYES CLOSED. RESP EVEN AND REGULAR. SR UP X2, CALL LIGHT WITHIN REACH.
--- NOTE | 2019-03-17 04:08 | NUR ---
PT DENIES ANY CP AT THIS TIME. CALL LIGHT WITHIN REACH.
[2019-03-17 04:25] VITALS: BP 129/65
--- NOTE | 2019-03-17 06:35 | NUR ---
VSS THROUGHOUT NIGHT. SR PER CM. PT STATED NITRO SL ALLEVIATED CP. NPO UNTIL SEEN BY CARDIOLOGY. NEEDS MET; WILL CONTINUE TO MONITOR.
--- NOTE | 2019-03-17 07:59 | NUR ---
ALERT AND ORIENTED. DENIES ANY NEEDS. TELEMERTY SHOWS SR 82. 02 AT 2 L/M PER NC. RIGHT FA SL PATENT. UP AB MAHAD. SR UP WITH CALL LIGHT IN REACH. WILL MONITOR
[2019-03-17 08:39] VITALS: BP 137/72
--- NOTE | 2019-03-17 10:27 | HP ---
PATIENT: DAMIAN NORRIS MEDICAL RECORD: [id number] ACCOUNT: [id number] LOCATION:D. D.2126 : 53 ADMISSION DATE: 03/16/19 PCP: JUDAH VELÁZQUEZ MD HISTORY AND PHYSICAL EXAMINATION DIAGNOSES: 1. Angina. 2. Coronary artery disease. 3. Recent PTCA stent RCA. 4. Insulin-dependent diabetes. 5. Hypertension. HISTORY OF PRESENT ILLNESS: Mrs. Norris presents with chest discomfort to [facility]. She underwent PTCA stent last week for chest discomfort of her RCA. There was really no other critical lesion in review of the cardiac catheterization film, in need of attention. Her chest discomfort is atypical angina, it is a pressure-like sensation, it was quite severe overnight, with multiple sublingual nitro it abated. She is not having pain now. PHYSICAL EXAMINATION: CONSTITUTIONAL/GENERAL APPEARANCE: Well nourished, well developed, appears stated age. EYES: Lids and conjunctivae noninjected. No discharge. No pallor. ENT: Lips within normal limit. No cyanosis. No pallor. NECK: Carotid arteries, bilateral normal upstroke. No bruits. No thrills. No jugular venous pressure or distention. CERVICAL LYMPH NODES: Nontender. Nonenlarged. THYROID: Not enlarged. No nodules. CARDIOVASCULAR: Precordial exam, nondisplaced. No heaves or pericardial thrills. Rate and rhythm, regular. Heart sounds, normal S1, normal S2. No S3, no gallop, no rub. Systolic murmur, not heard. Diastolic murmur, not heard. RESPIRATORY: Respiratory effort, unlabored. Normal curvature. No thoracic deformity. No chest wall tenderness. Percussion, resonant. Auscultation, clear. No wheezes, no rales, no rhonchi. ABDOMEN: Soft, nondistended, nontender. No abdominal pain, no vomiting and normal appetite. MUSCULOSKELETAL: No joint tenderness, normal gait, normal tone. SKIN: Warm and dry. OVERALL IMPRESSION: Chest pain compatible with angina. At this time, she is taking her Plavix. She has no EKG changes. Troponin is normal. We will put her on Imdur 60 mg a day in addition to her current medications and see if this keeps her pain free. Reassess in the morning. TRANSINT:[id number] Voice Confirmation ID: [id number] DOCUMENT ID: [id number] HISTORY AND PHYSICAL [id number] DAMIAN NORRIS JEFFREY MD at 1027 CC: [id number] DICTATION DATE: 03/16/19 1435 ELECTRONIC TECH: 03/16/19 1450 ADM IN [place] [id number] [id number]
[2019-03-17 12:00] VITALS: BP 129/73
[2019-03-17] MEDS ORDERED: ISOSORBIDE DINI30 MG PO (13:09)
--- NOTE | 2019-03-17 13:45 | NUR ---
PT DISCHARGED. IV DCD. INSTRUCTIONS GIVEN TO PT. AWAITING HER RIDE TO COME FROM [facility]
--- NOTE | 2019-03-17 13:45 | NUR ---
I have reviewed this patient and I concur with the Shift Assessment completed by the Licensed Practical Nurse today this shift.
--- NOTE | 2019-03-17 17:16 | MORECARE ---
CASE MANAGEMENT DISCHARGE SUMMARY PATIENT: DAMIAN ALEJO ANN UNIT: [id number] ADM DATE: 03/16/19 AGE: 63 : 54 SEX: F ROOM/BED: D.2241 AUTHOR: KAUR JAUREGUI PHYSICIAN: REFERRING PHYSICIAN: JACQUELINE VEGA MD DATE OF SERVICE: 03/17/19 Discharge Plan Patient Name: DAMIAN ALEJO [facility] [facility] 1955 Planned Disposition: Home Anticipated Discharge Date: 03/17/19 Discharge Date: Expected LOS: 1 Initial Reviewer: [email or web address] Initial Review Date: 03/16/2019 Generated: 03/17/19 6:16 pm Last DP export: 03/16/19 3:18 Patient Name: DAMIAN ALEJO Page [id number] at 1716 All edits/amendments must be made on the electronic document DICTATION DATE: 03/17/191715 MERCHANDISE ADJUSTMENT CLERK: AMAURI 03/17/191715 RPT#: [id number] DC DATE: STATUS: ADM IN [facility] [address] [place] [address] END OF REPORT
--- NOTE | 2019-03-17 17:23 | MORECARE ---
CASE MANAGEMENT DISCHARGE SUMMARY PATIENT: DAMIAN ALEJO ANN UNIT: [id number] ADM DATE: 03/16/19 AGE: 63 : 53 SEX: F ROOM/BED: D.0175 AUTHOR: KAUR JAUREGUI PHYSICIAN: REFERRING PHYSICIAN: JACQUELINE VEGA MD DATE OF SERVICE: 03/17/19 Discharge Plan Patient Name: DAMIAN ALEJO [facility] : 1955 Planned Disposition: Home Anticipated Discharge Date: 03/17/19 Discharge Date: Expected LOS: 1 Initial Reviewer: [email or web address] Initial Review Date: 03/16/2019 Generated: 03/17/19 6:23 pm Comments DCP- Discharge Planning Updated by [id number]: Kiah Francisco on 03/17/19 4:[address] PATIENT IS DISCHARGED TO HOME TODAY. SHE HAD ARRANGED FOR TRANSPORTATION TO HOME IN [place] WITH A TRANSPORT COMPANY. SHE STATES SHE HAS SPOKEN WITH THE "LADY" AND EXPECTED TO HAVE TRANSPORTATION. SHE CALLED THE TRANSPORTER AFTER BEING DISCHARGED AND HAS BEEN UNABLE TO RECEIVE AN ANSWER. SHE REQUESTED TO SPEAK WITH THE CM. SHE EXPLAINED HER DIFFICULTY. TC TO [employer] IN [place], . HE STATED THE COST WOULD BE $200.00. TC TO [facility] DONG, CASE MGT MDM SR. LEFT A VOICE MAIL REGARDING APPROVAL TO ASSIST W/ TRANSPORTATION. AWAIT CALL BACK. Last DP export: 03/17/19 4:16 Patient Name: DAMIAN ALEJO Page [phone] at 1723 All edits/amendments must be made on the electronic document DICTATION DATE: 03/17/191722 KEELER POLYGRAPH OPERATOR: AMAURI 03/17/191722 RPT#: [id number] DC DATE: STATUS: ADM IN [facility] [address] [place] [address] END OF REPORT
--- NOTE | 2019-03-17 18:10 | MORECARE ---
CASE MANAGEMENT DISCHARGE SUMMARY PATIENT: DAMIAN ALEJO ANN UNIT: [id number] ADM DATE: 03/16/19 AGE: 63 : 53 SEX: F ROOM/BED: D.5366 AUTHOR: KAUR JAUREGUI PHYSICIAN: REFERRING PHYSICIAN: JACQUELINE VEGA MD DATE OF SERVICE: 03/17/19 Discharge Plan Patient Name: DAMIAN ALEJO Facility: [facility]:[place] : 1955 Planned Disposition: Home Anticipated Discharge Date: 03/17/19 Discharge Date: Expected LOS: 1 Initial Reviewer: [email or web address] Initial Review Date: 03/16/2019 Generated: 03/17/19 7:10 pm Comments DCP- Discharge Planning Updated by [email or web address]: Kiah Francisco on 03/17/19 5:[address] PATIENT IS DISCHARGED TO HOME TODAY. SHE HAD ARRANGED FOR TRANSPORTATION TO HOME IN [place] WITH A TRANSPORT COMPANY. SHE STATES SHE HAS SPOKEN WITH THE "LADY" AND EXPECTED TO HAVE TRANSPORTATION. SHE CALLED THE TRANSPORTER AFTER BEING DISCHARGED AND HAS BEEN UNABLE TO RECEIVE AN ANSWER. SHE REQUESTED TO SPEAK WITH THE CM. SHE EXPLAINED HER DIFFICULTY. TC TO [employer] IN [place], . HE STATED THE COST WOULD BE $200.00. TC TO [facility]ABRI[employer] DONG, CASE MGT TRANSPORTATION PLANNER. LEFT A VOICE MAIL REGARDING APPROVAL TO ASSIST W/ TRANSPORTATION. AWAIT CALL BACK. REC CB WITH APPROVAL FOR TRANSPORT ASSIST. 1800 RECEIVED NOTIFCATION THAT [facility] WAS CONTACTED AND WILL BE COMING TO GET THE PATIENT THIS PM. GERA IS THE PUBLIC WORKS COMMISSIONER. CONTACT PHONE NUMBERS- CELL [phone] AND OFFICE NUMBER [phone]. Last DP export: 03/17/19 4:23 Patient Name: DAMIAN ALEJO Page [phone] at 1810 All edits/amendments must be made on the electronic document DICTATION DATE: 03/17/191809 SQL DATA ANALYST: AMAURI 03/17/191809 RPT#: [id number] DC DATE: STATUS: ADM IN [facility] [address] [place] [address] END OF REPORT
--- NOTE | 2019-03-17 19:15 | NUR ---
RECEIVED REPORT, WILL ASSUME CARE OF PT, PT IS SITTING IN CHAIR, WAITING FOR HER RIDE TO GET HER, DENIES ANY NEEDS AT THIS TIME, WILL CONTINUE PLAN OF CARE, CALL LIGHT IN REACH
--- NOTE | 2019-03-17 20:11 | NUR ---
PT RIDE IS HERE, TAKEN DOWN VIA WHEELCHAIR, DISCHARGED HOME WITH FAMILY
--- NOTE | 2019-03-19 09:28 | DS ---
PATIENT:DAMIAN NORRIS :53 MEDICAL RECORD: [id number] DISCHARGE SUMMARY ADMISSION DATE: 03/16/19 DISCHARGE DATE: 03/17/19 DISCHARGE DIAGNOSES: 1. Angina. 2. Coronary artery disease. 3. Recent percutaneous transluminal coronary angioplasty stent. HOSPITAL COURSE: Mrs. Norris presents with anginal symptomatology; however, was given Imdur and had decrease in her angina. It was increased to twice a day with no further anginal symptomatology. She was discharged home with the addition of Imdur 60 mg twice a day to her medical regimen. Follow [facility] with [facility] as previously scheduled. TRANSINT:[id number] Voice Confirmation ID: [id number] DOCUMENT ID: [id number] JACQUELINE VEGA MD at 0928 CC: [id number] DICTATION DATE: 03/17/19 1026 CHIEF ESTIMATOR: 03/18/19 0015 DIS IN 03/17/19 [facility] [address] [place] [address]
--- NOTE | 2019-03-19 09:44 | MORECARE ---
CASE MANAGEMENT DISCHARGE SUMMARY PATIENT: DAMIAN ALEJO ANN UNIT: [id number] ADM DATE: 03/16/19 AGE: 63 : 53 SEX: F ROOM/BED: D.7725 AUTHOR: KAUR JAUREGUI PHYSICIAN: REFERRING PHYSICIAN: JACQUELINE VEGA MD DATE OF SERVICE: 03/19/19 Discharge Plan Patient Name: DAMIAN ALEJO Facility: [facility]:[place] : 1955 Planned Disposition: Home Anticipated Discharge Date: 03/17/19 Discharge Date: 03/17/2019 Expected LOS: 1 Initial Reviewer: [email or web address] Initial Review Date: 03/16/2019 Generated: 03/19/19 10:43 am DCP- Discharge Planning Updated by [email or web address]: Kiah Francisco on 03/17/19 5:[address] PATIENT IS DISCHARGED TO HOME TODAY. SHE HAD ARRANGED FOR TRANSPORTATION TO HOME IN [place] WITH A TRANSPORT COMPANY. SHE STATES SHE HAS SPOKEN WITH THE "LADY" AND EXPECTED TO HAVE TRANSPORTATION. SHE CALLED THE TRANSPORTER AFTER BEING DISCHARGED AND HAS BEEN UNABLE TO RECEIVE AN ANSWER. SHE REQUESTED TO SPEAK WITH THE CM. SHE EXPLAINED HER DIFFICULTY. TC TO [employer] IN [place], . HE STATED THE COST WOULD BE $200.00. TC TO [facility]ABRIELE DONG, CASE MGT OCCUPATIONAL HEALTH PHYSICIAN. LEFT A VOICE MAIL REGARDING APPROVAL TO ASSIST W/ TRANSPORTATION. AWAIT CALL BACK. REC CB WITH APPROVAL FOR TRANSPORT ASSIST. 1800 RECEIVED NOTIFCATION THAT [facility] WAS CONTACTED AND WILL BE COMING TO GET THE PATIENT THIS PM. GERA IS THE SENIOR CORPORATE ACCOUNTANT. CONTACT PHONE NUMBERS- CELL [phone] AND OFFICE NUMBER [phone]. Last DP export: 03/17/19 5:10 Patient Name: DAMIAN ALEJO Page [phone] at 0944 All edits/amendments must be made on the electronic document DICTATION DATE: 03/19/19942 GANG PUNCH OPERATOR: AMAURI 03/19/19942 RPT#: [id number] DC DATE:03/17/19 STATUS: DIS IN [facility] [address] [place] [address] END OF REPORT
== END 2019-03-17 20:17 | disposition home or self-care (01) ==
LOC: D.M2 13:34 → OBSVTIME 13:34 → D.M2 03-17 20:17
PROVIDERS: ADMIT Internal Medicine Interventional Cardiology; ATTEND Internal Medicine Interventional Cardiology
DX: I25.119 Atherosclerotic heart disease of native coronary artery with unspecified angina pectoris (principal); E11.9 Type 2 diabetes mellitus without complications; I10 Essential (primary) hypertension